=== PATIENT | female | born 1960 | race Caucasian/White ===

== ENCOUNTER 2021-01-19 17:51 | Emergency (ER) | payer MEDICAID ==
[2021-01-19] MEDS ORDERED: HYDROmorphone 1 MG/ML CARPUJECT IVP STA ×2 (18:19→19:41)
--- NOTE | 2021-01-19 18:20 | ED Physician Documentation ---
History of Present Illness - Stated complaint Stated Complaint: GROIN & HIP PX - Chief complaint Chief Complaint: General - History obtained from History obtained from: Patient - Additonal information Additional information: Without specific trauma she has had severe left hip and groin pain for the last 3 days. She points to the inguinal ligament and lateral hip as the site of the pain. Much worse with walking and in fact cannot walk now. She also has severe pain with any rotation of the hip. Has tried Tylenol and naproxen with little relief, and naproxen gave her an upset stomach. She has a history of coronary disease and tobacco abuse. No history of peripheral vascular disease. Review of Systems Constitutional: reports: Reviewed and negative Eyes: reports: Reviewed and negative Ears: reports: Reviewed and negative PD PAST MEDICAL HISTORY - Present Medications Home Medications: Ambulatory Orders Medication Instructions Recorded Confirmed Lidocaine Patch 5% [Lidoderm Patch] 1 patch TOP DAILY PRN #10 patch 01/19/21 Oxycodone HCl/Acetaminophen 1 - 2 each PO Q6H PRN #20 tablet 01/19/21 [Percocet 5-325 mg Tablet] - Allergies Allergies/Adverse Reactions: Allergies Allergy/AdvReac Type Severity Reaction Status Date / Time NSAIDS (Non-Steroidal AdvReac Emesis Verified 01/19/21 18:05 Anti-Inflamma PD ED PE NORMAL - Vitals Vital signs reviewed: Yes - General General: Alert and oriented X 3, Other (She appears uncomfortable, she is holding the hips flexed. Winces with any motion.) - HEENT HEENT: PERRL, EOMI - Neck Neck: Supple, no meningeal sign, No bony TTP - Cardiac Cardiac: RRR, No murmur - Respiratory Respiratory: No respiratory distress, Clear bilaterally - Abdomen Abdomen: Normal bowel sounds, Soft, Non tender - Back Back: No CVA TTP, No spinal TTP - Derm Derm: Normal color, Warm and dry - Extremities Extremities: Other (Tenderness in the left inguinal ligament and lateral hip on the left. Severe pain with external rotation, less so internal rotation. Feet are warm and well perfused.) - Neuro Neuro: Alert and oriented X 3, Normal speech Results - Vitals Vitals: Vital Signs - 24 hr 01/19/21 01/19/21 01/19/21 18:00 18:55 19:04 Temperature 35.9 C L Heart Rate 80 72 75 Respiratory 16 16 16 Rate Blood Pressure 205/91 H 167/87 H O2 Saturation 99 98 97 01/19/21 01/19/21 19:30 20:00 Temperature Heart Rate 70 67 Respiratory 11 L 16 Rate Blood Pressure 165/83 H O2 Saturation 96 94 Oxygen O2 Source Room air - Labs Labs: Laboratory Tests 01/19/21 01/19/21 18:45 18:45 WBC 6.3 RBC 4.21 Hgb 11.5 L Hct 35.7 L MCV 84.8 MCH 27.3 MCHC 32.2 RDW 14.1 Plt Count 275 MPV 9.8 Neut # (Auto) 3.7 Lymph # (Auto) 1.9 [place] # (Auto) 0.6 Eos # (Auto) 0.1 Baso # (Auto) 0.1 Absolute Nucleated RBC 0.00 Nucleated RBC % 0.0 Sodium 141 Potassium 3.7 Chloride 108 Carbon Dioxide 24 Anion Gap 9.0 BUN 13 Creatinine 0.8 Estimated GFR (MDRD) 73 L Glucose 115 H Calcium 9.1 - Rads (name of study) L hip xr Radiology: EMP read contemporaneously (Moderate left hip osteoarthritis) PD MEDICAL DECISION MAKING - ED course ED course: 60-year-old woman presents with severe left hip pain, examination points to the femoral acetabular joint as the source. No evidence of infection. We were able to get a hold of the pain here with medications. Departure - Departure Disposition: 01 Home, Self Care Clinical Impression: Hip pain Condition: Good Record reviewed to determine appropriate education?: Yes Instructions: Hip Osteoarthritis, Hip Osteoarthritis Exercise Follow-Up: Andi Cordero DO [Provider Admit Priv/Credential] - Ricardo Briceño MD [Provider Admit Priv/Credential] - Prescriptions: Lidocaine Patch 5% [Lidoderm Patch] 1 patch TOP DAILY PRN #10 patch PRN Reason: pain Oxycodone HCl/Acetaminophen [Percocet 5-325 mg Tablet] 1 - 2 each PO Q6H PRN #20 tablet PRN Reason: pain Comments: Prescription was sent electronically to [facility] in [place] next to [facility]. For on-call primary care, Dr. Cordero will be on-call the week after next I would call his office for appointment. The local orthopedist is also on this form and would call his office as well. I am prescribing a short course of narcotic pain medication for you. These are potentially dangerous and addictive medications that should be used carefully. These medications may constipate you. Take an agjo-cpf-gqxczln stool softener (docusate) twice daily with plenty of water while taking these medications. If you go 24 hours without a bowel movement, take omwi-yzi-ygsjucj miralax, per package instructions. Do not drink or drive while taking these medications. If you received narcotic or sedating medications while in the emergency department, do not drive for 24 hours. Store this medication in a safe, secure place and out of reach of children. It is a violation of federal law to give or sell this medication to another person or to use in a manner other than prescribed. The ED will not refill narcotic prescriptions, including prescriptions lost or stolen. To dispose of unwanted medications: 1. [facility] at [address] in [place] has a medication drop box. They accept prescription medications (in pill form) Friday through Friday 9:00 a.m. to 5:00 p.m. 2. The [facility] accepts prescription medications (in pill form only) for disposal year round. Call for more information. 3. Contact the [facility] for the next [facility] sponsored prescription drug collection event. , [phone], or [phone]; Note that many narcotic pain relievers also contain Tylenol/acetaminophen. Please ensure that your total dose of acetaminophen from all sources does not exceed 3 g (3000 mg) per day.
--- NOTE | 2021-01-19 18:45 | XRAY Report ---
PROCEDURE: Hip w/Pelvis 2-3V LT INDICATIONS: hip pain TECHNIQUE: AP pelvis with lateral view(s) of the bilateral hip(s). COMPARISON: None. FINDINGS: Bones: No fractures or dislocations. Pelvic ring appears intact. No suspicious bony lesions. Mild right hip and yhow-df-lpioqvaw left hip osteoarthritis. Soft tissues: The visualized bowel gas pattern is normal. No suspicious soft tissue calcifications. IMPRESSION: Osteoarthritis. Reviewed by: Lorri Sanon MD, PhD on 01/19/2021 6:44 PM PDT Approved by: Lorri Sanon MD, PhD on 01/19/2021 6:44 PM PDT Station ID: [id number]
[2021-01-19 18:55] LABS: BASOPHILS # (AUTO) 0.1 10^3/uL (0.0-0.1); BASOPHILS % (AUTO) 1.1 %; EOSINOPHILS # (AUTO) 0.1 10^3/uL (0.0-0.7); EOSINOPHILS % (AUTO) 1.6 %; HCT - HEMATOCRIT 35.7 % (37.0-47.0); HGB - HEMOGLOBIN 11.5 g/dL (12.0-16.0); LYMPHOCYTES # (AUTO) 1.9 10^3/uL (1.5-3.5); LYMPHOCYTES % (AUTO) 29.5 %; MEAN CORPUSCULAR HEMOGLOBIN 27.3 pg (27.0-31.0); MEAN CORPUSCULAR HGB CONC 32.2 g/dL (32.0-36.0); MEAN CORPUSCULAR VOLUME 84.8 fL (81.0-99.0); MEAN PLATELET VOLUME 9.8 fL (7.9-10.8); MONOCYTES # (AUTO) 0.6 10^3/uL (0.0-1.0); MONOCYTES % (AUTO) 8.8 %; NEUTROPHILS # (AUTO) 3.7 10^3/uL (1.5-6.6); NEUTROPHILS % (AUTO) 58.8 %; PLT - PLATELET COUNT 275 10^3/uL (130-450); RED BLOOD COUNT 4.21 10^6/uL (4.20-5.40); RED CELL DISTRIBUTION WIDTH 14.1 % (12.0-15.0); WHITE BLOOD COUNT 6.3 x10^3/uL (4.8-10.8)
[2021-01-19 19:11] LABS: CALCIUM 9.1 mg/dL (8.5-10.3); CREATININE 0.8 mg/dL (0.4-1.0); POTASSIUM 3.7 mmol/L (3.5-5.0)
[2021-01-19] MEDS ORDERED: KETOROLAC 30 MG/ML VIAL IVP STA (19:41)
[2021-01-19 20:10] VITALS: BP 165/83
[2021-01-19] MEDS ORDERED: LIDOCAINE PATCH 5% TOP STA (20:17)
[2021-01-19] MEDS ORDERED: oxyCODONE/ACET 5/325 Prepack 4 PO STA (20:17)
== END 2021-01-19 20:40 | disposition home or self-care (01) ==
LOC: ED 17:51
DX: M25.552 Pain in left hip (principal)
CPT/HCPCS: 36415; 73502; 80048; 85025; 96374; 96375; 96376; 99284; A9270; J1170

== ENCOUNTER 2021-01-30 13:49 | Outpatient (CLI) | payer MEDICAID | END 2021-01-30 13:50 | disposition short-term general hospital (02) | LOC: EMS 13:49 | DX: R07.9 Chest pain, unspecified (principal) | CPT/HCPCS: A0425; A0427; A0999 ==

== ENCOUNTER 2021-03-07 19:10 | Emergency (ER) | payer MEDICAID ==
[2021-03-07] MEDS ORDERED: PANTOPRAZOLE 40 MG VIAL IVP STA (19:37)
[2021-03-07 19:55] LABS: BASOPHILS # (AUTO) 0.1 10^3/uL (0.0-0.1); BASOPHILS % (AUTO) 0.7 %; EOSINOPHILS % (AUTO) 0.6 %; HCT - HEMATOCRIT 35.1 % (37.0-47.0); HGB - HEMOGLOBIN 11.3 g/dL (12.0-16.0); LYMPHOCYTES # (AUTO) 2.1 10^3/uL (1.5-3.5); LYMPHOCYTES % (AUTO) 30.2 %; MEAN CORPUSCULAR HEMOGLOBIN 26.9 pg (27.0-31.0); MEAN CORPUSCULAR HGB CONC 32.2 g/dL (32.0-36.0); MEAN CORPUSCULAR VOLUME 83.6 fL (81.0-99.0); MEAN PLATELET VOLUME 10.6 fL (7.9-10.8); MONOCYTES # (AUTO) 0.7 10^3/uL (0.0-1.0); MONOCYTES % (AUTO) 10.1 %; NEUTROPHILS % (AUTO) 58.1 %; PLT - PLATELET COUNT 294 10^3/uL (130-450); RED CELL DISTRIBUTION WIDTH 14.1 % (12.0-15.0)
[2021-03-07 20:02] LABS: PT - PROTHROMBIN TIME 11.3 secs (9.9-12.6)
[2021-03-07 20:08] LABS: ALBUMIN 4.5 g/dL (3.2-5.5); ALBUMIN/GLOBULIN RATIO 1.7 (1.0-2.2); BILIRUBIN,TOTAL 0.5 mg/dL (0.2-1.0); CALCIUM 9.3 mg/dL (8.5-10.3); CREATININE 0.8 mg/dL (0.4-1.0); POTASSIUM 3.9 mmol/L (3.5-5.0); TOTAL PROTEIN 7.1 g/dL (6.7-8.2)
[2021-03-07] MEDS ORDERED: FAMOTIDINE 20 MG/2 ML VIAL IVP STA (20:38)
[2021-03-07] MEDS ORDERED: MORPHINE 2 MG/ML CARPUJECT IVP STA (20:39)
[2021-03-07] MEDS ORDERED: SODIUM CHLORIDE 0.9% 1,000 ML IV STA (20:39)
[2021-03-07] MEDS ORDERED: HYDROmorphone 1 MG/ML CARPUJECT IVP STA (21:12)
[2021-03-07] MEDS ORDERED: IOVERSOL 320 100 ML VIAL IVP ONE ×2 (21:21→21:49)
--- NOTE | 2021-03-07 22:07 | CT Report ---
PROCEDURE: Abdomen/Pelvis W INDICATIONS: severe abd pain, hx duodenal ulcer, hyst, c sectio CONTRAST: IV CONTRAST: Optiray 320 ml: 100 PO CONTRAST: *NO PO CONTRAST TECHNIQUE: After the administration of intravenous contrast, 5 mm thick sections acquired from the diaphragms to the symphysis. 5 mm thick coronal and sagittal reformats were acquired. For radiation dose reducti on, the following was used: automated exposure control, adjustment of mA and/or kV according to maureen ent size. COMPARISON: None. FINDINGS: Image quality: Excellent. ABDOMEN: Lung bases: Lung bases are clear. Pacemaker leads are partially imaged in the right heart. Solid organs: Liver and spleen are normal in size and enhancement. Gallbladder is unremarkable. Bi liary system is non dilated. Pancreas enhances normally. No adrenal nodules. Kidneys demonstrate n ormal size and enhancement, without hydronephrosis. There is mild chronic renal cortical scarring at the superior pole of the left kidney. Peritoneum and bowel: No duodenal wall thickening or perforation is seen. Multiple diverticula are se en in the colon without signs of acute diverticulitis. Normal appendix. No signs of bowel obstruction . No free fluid or air. Nodes and vessels: No retroperitoneal or mesenteric adenopathy by size criteria. Aorta and inferior vena cava are normal in size. Moderate aortic atherosclerotic calcifications are noted. Miscellaneous: No ventral hernias. PELVIS: Genitourinary: Bladder wall thickness is normal. Status post hysterectomy. Miscellaneous: No inguinal hernias or adenopathy. Bones: No suspicious bony lesions. No vertebral body compression fractures. Post surgical changes a re seen at the L5-S1 level. Degenerative changes are noted in the hips and spine. IMPRESSION: 1.No acute abnormality is seen in the abdomen or pelvis. 2.Colonic diverticulosis without signs of acute diverticulitis. Reviewed by: London Galo MD on 03/07/2021 10:06 PM PDT Approved by: London Galo MD on 03/07/2021 10:06 PM PDT Station ID: [id number]
--- NOTE | 2021-03-07 22:44 | ED Physician Documentation ---
History of Present Illness - Stated complaint Stated Complaint: VOMITING BLOOD, DARK STOOL, BLOATING - Chief complaint Chief Complaint: Abd Pain - History obtained from History obtained from: Patient - Additonal information Additional information: 60yF with pmh duodenal ulcer, cad s/p cabg, psh partial hysterectomy, c section, p/w epigastric and LUQ abdominal pain intermittent over the past 2 days, a/w n/v X 2, one of which was "gummy" with dark red blood. also with black stools. black BM this am and last night. last endoscopy / colonoscopy >[address] 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 Cardiovascular: Coronary stent, Cardiac catheterization - Present Medications Home Medications: Ambulatory Orders Medication Instructions Recorded Confirmed Lidocaine Patch 5% [Lidoderm Patch] 1 patch TOP DAILY PRN #10 patch 01/19/21 Oxycodone HCl/Acetaminophen 1 - 2 each PO Q6H PRN #20 tablet 01/19/21 [Percocet 5-325 mg Tablet] Ondansetron Odt [Zofran Odt] 4 mg TL Q6H PRN #10 tablet 03/07/21 Oxycodone HCl/Acetaminophen 1 each PO Q4H PRN #10 tablet 03/07/21 [Percocet 10-325 mg Tablet] - Allergies Allergies/Adverse Reactions: Allergies Allergy/AdvReac Type Severity Reaction Status Date / Time NSAIDS (Non-Steroidal AdvReac Emesis Verified 03/07/21 19:36 Anti-Inflamma - Social History Does the pt smoke?: Yes Smoking Status: Current every day smoker Does the pt drink ETOH?: No Does the pt have substance abuse?: No PD ED PE NORMAL - Vitals Vital signs reviewed: Yes - General General: Alert and oriented X 3, Other (tearful, moderate distress. appears older than stated age) - HEENT HEENT: Atraumatic, PERRL, EOMI - Neck Neck: Supple, no meningeal sign - Cardiac Cardiac: RRR - Respiratory Respiratory: No respiratory distress, Clear bilaterally - Abdomen Abdomen: Other (discomfort to epigastric and LUQ palpation) - Back Back: No CVA TTP - Derm Derm: Normal color - Extremities Extremities: No deformity - Neuro Neuro: Alert and oriented X 3 - Psych Psych: Other (anxious affect. tearful) Results - Vitals Vitals: Vital Signs - 24 hr 03/07/21 03/07/21 03/07/21 19:20 20:00 20:30 Temperature 36.4 C L 36.4 C L Heart Rate 79 67 71 Respiratory 20 23 20 Rate Blood Pressure 209/97 H 205/93 H 170/100 H O2 Saturation 97 100 96 03/07/21 03/07/21 03/07/21 21:00 21:30 22:00 Temperature Heart Rate 70 72 70 Respiratory 18 14 16 Rate Blood Pressure 196/103 H 189/94 H 179/89 H O2 Saturation 98 96 99 03/07/21 03/07/21 22:30 23:00 Temperature Heart Rate 67 88 Respiratory 11 L 16 Rate Blood Pressure 182/91 H 136/69 H O2 Saturation 95 99 Oxygen O2 Source Room air - EKG (time done) 2147 Rate: Rate (enter#) (72) Rhythm: NSR [place]: Normal Intervals: Normal CA, QRS normal Ischemia: Other (no STEMI, no acute ischemic changes) - Labs Labs: Laboratory Tests 03/07/21 03/07/21 03/07/21 19:44 19:50 19:50 WBC 7.0 RBC 4.20 Hgb 11.3 L Hct 35.1 L MCV 83.6 MCH 26.9 L MCHC 32.2 RDW 14.1 Plt Count 294 MPV 10.6 Neut # (Auto) 4.0 Lymph # (Auto) 2.1 [place] # (Auto) 0.7 Eos # (Auto) 0.0 Baso # (Auto) 0.1 Absolute Nucleated RBC 0.00 Nucleated RBC % 0.0 PT 11.3 INR 1.0 APTT 30.0 Sodium Potassium Chloride Carbon Dioxide Anion Gap BUN Creatinine Estimated GFR (MDRD) Glucose Calcium Total Bilirubin AST ALT Alkaline Phosphatase Total Protein Albumin Globulin Albumin/Globulin Ratio Lipase Blood Type Blood Type Recheck A NEGATIVE Antibody Screen 03/07/21 03/07/21 19:50 19:52 WBC RBC Hgb Hct MCV MCH MCHC RDW Plt Count MPV Neut # (Auto) Lymph # (Auto) [place] # (Auto) Eos # (Auto) Baso # (Auto) Absolute Nucleated RBC Nucleated RBC % PT INR APTT Sodium 137 Potassium 3.9 Chloride 102 Carbon Dioxide 26 Anion Gap 9.0 BUN 18 Creatinine 0.8 Estimated GFR (MDRD) 73 L Glucose 96 Calcium 9.3 Total Bilirubin 0.5 AST 16 ALT 15 Alkaline Phosphatase 74 Total Protein 7.1 Albumin 4.5 Globulin 2.6 Albumin/Globulin Ratio 1.7 Lipase 35 Blood Type A NEGATIVE Blood Type Recheck Antibody Screen NEGATIVE PD MEDICAL DECISION MAKING - ED course ED course: ct noncontributory. hb stable. patient with significant improvement with symptomatic care. strict return precautions given. she will f/u urgently with her pcp Dr. Heath for referral for endoscopy. Departure - Departure Disposition: Home, Self Care Clinical Impression: Nausea, Abdominal pain Condition: Good Instructions: Abdominal Pain Prescriptions: Oxycodone HCl/Acetaminophen [Percocet 10-325 mg Tablet] 1 each PO Q4H PRN #10 tablet PRN Reason: Pain Ondansetron Odt [Zofran Odt] 4 mg TL Q6H PRN #10 tablet PRN Reason: Nausea / Vomiting Comments: You were seen in the emergency department for vomiting, abdominal pain, and dark stools. Your hemoglobin, measure of your blood level, was the same as it has been in the past. It does not appear that you are bleeding excessively at this time. Your CT scan did not show any emergent findings, but since you saw blood in your vomit and you are having dark stools you will need to follow up with your primary doctor as soon as possible for referral for endoscopy. It is very important that you return to the emergency room if you have multiple large bloody bowel movements or large-volume blood in your vomit. Please also return if You have trouble passing gas, are unable to have a bowel movement, or have any other new or worsening symptoms or other concerns. Discharge Date/Time: 03/07/21 23:43
[2021-03-07 23:03] VITALS: BP 136/69
== END 2021-03-07 23:43 | disposition home or self-care (01) ==
LOC: ED 19:10
DX: R10.12 Left upper quadrant pain (principal); R10.13 Epigastric pain; R11.2 Nausea with vomiting, unspecified; K57.30 Diverticulosis of large intestine without perforation or abscess without bleeding; Z87.11 Personal history of peptic ulcer disease; I25.10 Atherosclerotic heart disease of native coronary artery without angina pectoris; Z95.1 Presence of aortocoronary bypass graft; F17.200 Nicotine dependence, unspecified, uncomplicated
CPT/HCPCS: 36415; 74177; 80053; 83690; 85025; 85610; 85730; 86850; 86900; 86901; 93005; 96374; 96375; 99283; 99285; J1170; Q9967

== ENCOUNTER 2021-03-14 13:40 | Outpatient (CLI) | payer MEDICAID ==
--- NOTE | 2021-03-15 09:56 | Mammography Report ---
BILATERAL DIGITAL SCREENING MAMMOGRAM 3D/2D: 03/14/2021 CLINICAL: Routine screening. Comparison is made to exams dated: 12/01/2014 mammogram and 02/22/2014 mammogram - [facility]. There are scattered fibroglandular elements in both breasts. There is a new 0.3 cm x 0.5 cm oval asymmetry with a circumscribed margin in the left breast middle d epth central to the nipple seen on the craniocaudal view only 6 cm from the nipple. No other significant masses, calcifications, or other findings are seen in either breast. IMPRESSION: INCOMPLETE: NEEDS ADDITIONAL IMAGING EVALUATION The new 0.3 cm x 0.5 cm oval asymmetry in the left breast is consistent with a cyst and is indetermin ate. A diagnostic mammogram and ultrasound is recommended. This exam was interpreted at Station ID: [id number]. NOTE: For mammograms, a report in lay terms will be sent to the patient. Approximately 15% of breast malignancies will not be visualized mammographically. In the management of a palpable breast mass, a negative mammogram must not discourage biopsy of a clinically suspicious lesion. Electronically Signed By: Bossman Vogel acr/:03/14/2021 16:32:10 ACR BI-RADS Category 0: Incomplete 3340F PARENCHYMAL PATTERN: (A) - The breast(s) demonstrate(s) scattered fibroglandular densities. BI-RADS CATEGORY: (0) - 0 Mammo and [place] [id number] Immediate follow-up LATERALITY: (L)
== END 2021-03-14 13:41 | disposition home or self-care (01) ==
LOC: DI.N 13:40
PROVIDERS: ATTEND Physician Assistant
DX: Z12.31 Encounter for screening mammogram for malignant neoplasm of breast (principal); N64.89 Other specified disorders of breast

== ENCOUNTER 2021-03-14 13:42 | Outpatient (CLI) | payer MEDICAID | END 2021-03-14 13:43 | disposition home or self-care (01) | LOC: LAB.N 13:42 | PROVIDERS: ATTEND Physician Assistant | DX: R10.9 Unspecified abdominal pain (principal); Z87.19 Personal history of other diseases of the digestive system ==

== ENCOUNTER 2021-04-26 12:29 | Outpatient (CLI) | payer MEDICAID ==
--- NOTE | 2021-04-27 10:17 | Mammography Report ---
UNILATERAL LEFT DIGITAL DIAGNOSTIC MAMMOGRAM 3D/2D: 04/26/2021 CLINICAL: Patient returns today to evaluate an asymmetry in the left breast. Comparison is made to exams dated: 12/01/2014 mammogram, 02/22/2014 mammogram - [facility], and 03/14/2021 mammogram - [facility]. There are scattered fibroglandular el ements in left breast. There is an oval equal density asymmetry with an indistinct and circumscribed margin in the left [address] middle depth medial region seen on the craniocaudal view only. No other significant masses or calcifications are seen in the breast. IMPRESSION: INCOMPLETE: NEEDS ADDITIONAL IMAGING EVALUATION The oval equal density asymmetry in the left breast is indeterminate. An ultrasound is recommended. Ultrasound will be performed immediately following the current exam. This exam was interpreted at Station ID: [id number]. NOTE: For mammograms, a report in lay terms will be sent to the patient. Approximately 15% of breast malignancies will not be visualized mammographically. In the management of a palpable breast mass, a negative mammogram must not discourage biopsy of a clinically suspicious lesion. Electronically Signed By: Noel Larios M.D. ddp/:04/26/2021 13:25:42 ACR BI-RADS Category 0: Incomplete 3340F PARENCHYMAL PATTERN: (A) - The breast(s) demonstrate(s) scattered fibroglandular densities. BI-RADS CATEGORY: (0) - 0 Ultrasound [id number] Immediate follow-up LATERALITY: (B)
--- NOTE | 2021-04-27 10:17 | Ultrasound Report ---
LIMITED ULTRASOUND OF LEFT BREAST: 04/26/2021 CLINICAL: Patient returns today to evaluate a focal asymmetry in the left breast. Comparison is made to exams dated: 04/26/2021 mammogram, 03/14/2021 mammogram - [facility], 12/01/2014 mammogram, and 02/22/2014 mammogram - [facility]. Ultrasound of the left breast 7-11 o'clock, and retroareolar regions was performed on the area of in terest. Khan scale images of the real-time examination were reviewed. No discrete cystic or solid mass lesion identified in the area of mammographic abnormality. IMPRESSION: PROBABLY BENIGN There are no abnormalities seen in the left breast to correspond with the mammography finding central to the nipple and slightly medial in the left breast. A follow-up mammogram and a possible ultrasound in 6 months are recommended to demonstrate stability. This exam was interpreted at Station ID: [id number]. Electronically Signed By: Noel Larios M.D. ddp/:04/26/2021 13:55:05 Ultrasound BI-RADS: 3 Probably benign BI-RADS CATEGORY: (3) - 3 Mammo and [place] [id number] 6 month follow-up LATERALITY: (B)
== END 2021-04-26 12:30 | disposition home or self-care (01) ==
LOC: DI 12:29
PROVIDERS: ATTEND Physician Assistant
DX: R92.8 Other abnormal and inconclusive findings on diagnostic imaging of breast (principal)

== ENCOUNTER 2021-07-04 12:14 | Outpatient (CLI) | payer MEDICAID | END 2021-07-04 12:15 | disposition critical access hospital (66) | LOC: EMS 12:14 | DX: R07.9 Chest pain, unspecified (principal); I25.2 Old myocardial infarction; Z95.0 Presence of cardiac pacemaker | CPT/HCPCS: A0425; A0427; A0999 ==

== ENCOUNTER 2021-07-04 12:36 | Emergency (ER) | payer MEDICAID ==
[2021-07-04] MEDS ORDERED: LABETALOL 20 MG/4 ML SYRINGE IVP STA (12:52)
--- NOTE | 2021-07-04 12:56 | ED Physician Documentation ---
History of Present Illness - Stated complaint Stated Complaint: CHEST PX - Chief complaint Chief Complaint: Cardiac - Additonal information Additional information: 60-year-old female presents emergency department for evaluation of sudden onset substernal chest pain and pressure with radiation to her neck and jaw. She reports a significant cardiac history of at least 8 myocardial infarctions since 2009. She has a CABG x2 and stent x7 as a pacermaker. These cardiovascular procedures were completed in [facility]. She is however evaluated by [facility] cardiology. Patient reports that the chest pain occurred when she was putting water in her refrigerator. This feels similar to previous MIs in the past though no radiation to the arm. EMS gave the patient nitroglycerin x2 but had to stop given soft BP enroute. They also gave her 325 of aspirin. Here on presentation to the ER the patient appears very uncomfortable and is clutching at her chest. She is noted to be normotensive but tachycardic with a heart rate of 116. Given the significant cardiac history she is given additional doses of nitroglycerin as well as a small dose of labetalol to slow her heart rate. pt does have a hx of duodenal ulcer; denies melena or hematochezia. Reports this pain is very different and she has no abdominal pain Patient was an active daily tobacco user until May 18, 2021 meds: asa 81 mg prazosin 5mg daily pantropazole 40 mg qd losartan/HCT 100/12.5 proxetine 40 mg Review of Systems Constitutional: reports: Reviewed and negative Nose: reports: Reviewed and negative Throat: reports: Reviewed and negative Cardiac: reports: Chest pain / pressure, Palpitations. denies: Pedal edema, Ca lf pain Respiratory: reports: Reviewed and negative GI: reports: Nausea. 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 Cardiovascular: Coronary stent, Cardiac catheterization - Present Medications Home Medications: Ambulatory Orders Medication Instructions Recorded Confirmed Oxycodone HCl/Acetaminophen 1 each PO Q4H PRN #10 tablet 03/07/21 07/04/21 [Percocet 10-325 mg Tablet] HYDROcod/ACETAM 5/325 [[place] 5/325] 1 tab PO Q4HR PRN 07/04/21 07/04/21 Losartan/Hydrochlorothiazide 1 tab PO HS 07/04/21 07/04/21 [Losartan-Hctz 100-12.5 mg Tab] Prazosin HCl [Minipress] 5 mg PO HS 07/04/21 07/04/21 hydrOXYzine HCL [Hydroxyzine HCl] 25 mg PO HS 07/04/21 07/04/21 lamoTRIgine [LaMICtal] 100 mg PO HS 07/04/21 07/04/21 traZODone [Desyrel] 50 mg PO HS 07/04/21 07/04/21 - Allergies Allergies/Adverse Reactions: Allergies Allergy/AdvReac Type Severity Reaction Status Date / Time NSAIDS (Non-Steroidal AdvReac Emesis Verified 07/04/21 12:47 Anti-Inflamma - Social History Does the pt smoke?: Yes Smoking Status: Current every day smoker Does the pt drink ETOH?: No Does the pt have substance abuse?: No PD ED PE EXPANDED - General General: Alert, In Pain, In distress - Cardiac Cardiac: Tachy, Regular Rhythm, Radial strong equal, Pedal strong equal, Cap refill < 2 sec. No: Murmur Present - Respiratory Respiratory: Clear to ausultation ashish. No: Distress, Labored - Abdomen Abdomen: Normal Bowel sounds. No: Tender to palpation - Derm Derm: Normal color, Warm and dry. No: Rash - Extremities Extremities: Normal. No: Deformity, Tenderness - Neuro Neuro: Alert and Oriented X 3, CNII-XII intact - GCS Eye Opening: Spontaneous Motor: Obeys Commands Verbal: Oriented Total: 15 Results - Vitals Vitals: Vital Signs - 24 hr 07/04/21 07/04/21 07/04/21 12:44 12:57 13:21 Temperature 36.2 C L Heart Rate 116 H 102 H 82 Respiratory 25 H 17 22 Rate Blood Pressure 107/84 H 107/84 H 103/70 O2 Saturation 99 98 94 07/04/21 07/04/21 07/04/21 13:22 13:23 13:31 Temperature Heart Rate 81 83 78 Respiratory 22 20 26 H Rate Blood Pressure 103/81 H 140/73 H 106/76 O2 Saturation 98 98 99 07/04/21 07/04/21 07/04/21 14:12 15:30 16:10 Temperature Heart Rate 60 60 60 Respiratory 15 18 19 Rate Blood Pressure 113/69 130/77 124/80 O2 Saturation 100 100 96 07/04/21 07/04/21 07/04/21 17:00 17:30 18:00 Temperature Heart Rate 70 73 71 Respiratory 19 19 19 Rate Blood Pressure 133/87 H 145/97 H 145/97 H O2 Saturation 99 100 100 07/04/21 07/04/21 07/04/21 19:30 20:14 21:39 Temperature Heart Rate 71 63 73 Respiratory 20 18 18 Rate Blood Pressure 119/68 131/77 H 125/79 O2 Saturation 100 93 100 07/04/21 07/04/21 07/04/21 21:41 21:46 21:51 Temperature Heart Rate 68 69 73 Respiratory 19 19 22 Rate Blood Pressure 135/80 H 135/71 H 135/71 H O2 Saturation 100 99 100 07/04/21 07/04/21 21:56 22:00 Temperature Heart Rate 72 81 Respiratory 18 19 Rate Blood Pressure 125/79 120/80 O2 Saturation 100 98 Oxygen O2 Source Room air Oxygen Flow Rate 2 - EKG (time done) 1236 Rate: Rate (enter#) (123) Rhythm: Sinus tachycardia, LAE Arabi: Normal Intervals: Normal AR. No: Prolonged QT QRS: LVH Ischemia: Non specific changes Compare to prior EKG: Changed from prior EKG (previous t wave inversion lateral leads; now upright) Computer interpretation: Agree with computer 1607 Rate: Rate (enter#) (60) Rhythm: Paced (atrially) Intervals: Normal AR. No: Prolonged QT QRS: Normal Ischemia: T wave inversion (anterior lateral; unchaged from previous to last), Non specific changes (Aterior leads) - Labs Labs: Laboratory Tests 07/04/21 07/04/21 07/04/21 12:52 12:52 12:52 WBC 9.6 RBC 4.58 Hgb 12.6 Hct 37.8 MCV 82.5 MCH 27.5 MCHC 33.3 RDW 14.2 Plt Count 372 MPV 9.3 Neut # (Auto) 6.7 H Lymph # (Auto) 1.9 [place] # (Auto) 0.9 Eos # (Auto) 0.0 Baso # (Auto) 0.1 Absolute Nucleated RBC 0.00 Nucleated RBC % 0.0 PT 11.2 INR 1.0 Sodium 132 L Potassium 3.7 Chloride 97 L Carbon Dioxide 23 Anion Gap 12.0 BUN 14 Creatinine 1.1 H Estimated GFR (MDRD) 51 L Glucose 123 H Calcium 9.0 Total Bilirubin 0.9 AST 21 ALT 22 Alkaline Phosphatase 76 Troponin I High Sens Total Protein 7.5 Albumin 4.6 Globulin 2.9 Albumin/Globulin Ratio 1.6 Lipase 37 07/04/21 07/04/21 07/04/21 12:52 15:13 16:39 WBC RBC Hgb Hct MCV MCH MCHC RDW Plt Count MPV Neut # (Auto) Lymph # (Auto) [place] # (Auto) Eos # (Auto) Baso # (Auto) Absolute Nucleated RBC Nucleated RBC % PT INR Sodium Potassium Chloride Carbon Dioxide Anion Gap BUN Creatinine Estimated GFR (MDRD) Glucose Calcium Total Bilirubin AST ALT Alkaline Phosphatase Troponin I High Sens 9.1 9.4 9.9 Total Protein Albumin Globulin Albumin/Globulin Ratio Lipase - Rads (name of study) CXR Radiology: EMP read contemporaneously (Pacemaker noted. Otherwise no acute cardiopulmonary process.) CT pulmonary angio Radiology: Final report received (No evidence of pulmonary emboli. No thoracic aortic aneurysm. Cardiomegaly, no pleural effusion. Left chest wall pacemaker in place. No mediastinal or hilar lymphadenopathy. 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 She quit smoking about 3 months ago. EMS gave 325 aspirin and nitro X2 withotu relief of CP. She did develop hyotension briefly enroute - initial EKG ST. Given cardiac hx she was given labetalol to reduce HR. Pain was not relieved with nitro X3 or morphine and fentanyl. Chest pain was not reproducible. - initial EKG, non ischemic, frist trop negative. second trop at > 2 hours also negative - CT PE study negative, withotu other acute findings 1500: I did speak with Dr. Rodríguez cardiology specifications writer at [facility]. He does feel that the patient should be admitted to the hospital to achieve control of her chest pain as well as a cardiac stress test. He does not believe the patient would need to go to [facility] if her troponins are negative x2. 1545: I spoke with our hospitalist Dr. Damian. He does not feel that the patient is appropriate for admission here. He does not feel that with her cardiac history placing her on a treadmill and/or doing a pharmacologic stress test is safe, Especially in the presence of active chest pain. There is a paucity of beds regionally secondary to the pandemic however we will attempt to transfer to a facility that has cardiology services available. Will continue to treat her chest pain. 1800: pt is crying, tearful, upset. Feels like she is havign a panic attack. Will give 1 mg of ativan IV 1945: Pt is free of chest pain at this time. NO longer anxious and crying. However if she should develop CP again, she will be placed on a nitroglycerin grr. Pt has received 50 mg fentanyl IV X3 here in the ED> Trops negative X3; we have called [facility] to help find a bed for transfer. We do no have the ability to do a stress test on pt tomorrow [facility] 2145: Patient has developed the chest pain again 8 out of 10 sharp and radiating to her back. Nitroglycerin infusion will be initiated. We are still attempting to find a bed with the cardiac services available for further evaluation and/or stress test. 2200: I have spoken with [facility] transfer center and notified that the patient is now on a nitroglycerin gtt. Resp PCR is pending. Pt remains clinically stable but will be signed out to my nighttime colleague Dr. Villela to f/u on transfer bed availability 2300: Patient remains on the nitroglycerin infusion. She is continuing to have chest pain. Will order an additional 25 mics of fentanyl. Patient will be signed out to my nighttime colleague pending appropriate transfer to [facility] with cardiology services. Departure - Departure Disposition: 02 Transfer Acute Care Hosp Clinical Impression: Chest pain Qualifiers: Chest pain type: unspecified Qualified Code(s): R07.9 - Chest pain, unspecified CAD (coronary artery disease) Qualifiers: Coronary Disease-Associated Artery/Lesion type: unspecified vessel or lesion type [place] vs. transplanted heart: [place] heart Associated angina: without angina Qualified Code(s): I25.10 - Atherosclerotic heart disease of [place] coronary artery without angina pectoris
[2021-07-04] MEDS: NITROGLYCERIN SL 0.4 MG TABLET SL STA ×3 (12:57→13:31)
[2021-07-04 13:00] LABS: BASOPHILS # (AUTO) 0.1 10^3/uL (0.0-0.1); BASOPHILS % (AUTO) 0.7 %; EOSINOPHILS % (AUTO) 0.4 %; HCT - HEMATOCRIT 37.8 % (37.0-47.0); HGB - HEMOGLOBIN 12.6 g/dL (12.0-16.0); LYMPHOCYTES # (AUTO) 1.9 10^3/uL (1.5-3.5); LYMPHOCYTES % (AUTO) 19.7 %; MEAN CORPUSCULAR HEMOGLOBIN 27.5 pg (27.0-31.0); MEAN CORPUSCULAR HGB CONC 33.3 g/dL (32.0-36.0); MEAN CORPUSCULAR VOLUME 82.5 fL (81.0-99.0); MEAN PLATELET VOLUME 9.3 fL (7.9-10.8); MONOCYTES # (AUTO) 0.9 10^3/uL (0.0-1.0); MONOCYTES % (AUTO) 9.2 %; NEUTROPHILS # (AUTO) 6.7 10^3/uL (1.5-6.6); NEUTROPHILS % (AUTO) 69.7 %; PLT - PLATELET COUNT 372 10^3/uL (130-450); RED BLOOD COUNT 4.58 10^6/uL (4.20-5.40); RED CELL DISTRIBUTION WIDTH 14.2 % (12.0-15.0); WHITE BLOOD COUNT 9.6 x10^3/uL (4.8-10.8)
[2021-07-04] MEDS ORDERED: MORPHINE 2 MG/ML CARPUJECT IVP STA (13:00)
[2021-07-04] MEDS ORDERED: SODIUM CHLORIDE 0.9% 1,000 ML IV STA (13:02)
[2021-07-04 13:16] LABS: PT - PROTHROMBIN TIME 11.2 secs (9.9-12.6)
--- NOTE | 2021-07-04 13:17 | XRAY Report ---
PROCEDURE: Chest 1 View X-Ray INDICATIONS: Chest Pain TECHNIQUE: One view of the chest was acquired. COMPARISON: None. FINDINGS: Surgical changes and devices: left chest wall pacemaker leads are in the region of right atrium and r ight ventricle.. Lungs and pleura: No pleural effusions or pneumothorax. Lungs are clear. Mediastinum: Mediastinal contours appear normal. Heart size is normal. Bones and chest wall: No suspicious bony lesions. Overlying soft tissues appear unremarkable. IMPRESSION: No acute cardiopulmonary pathology. Reviewed by: Chano Figueroa MD on 07/04/2021 1:15 PM PST Approved by: Chano Figueroa MD on 07/04/2021 1:15 PM PST Station ID: [id number]
[2021-07-04 13:25] LABS: ALBUMIN 4.6 g/dL (3.2-5.5); ALBUMIN/GLOBULIN RATIO 1.6 (1.0-2.2); BILIRUBIN,TOTAL 0.9 mg/dL (0.2-1.0); CREATININE 1.1 mg/dL (0.4-1.0); TOTAL PROTEIN 7.5 g/dL (6.7-8.2)
[2021-07-04 13:27] LABS: POTASSIUM 3.7 mmol/L (3.5-5.0)
[2021-07-04] MEDS ORDERED: IOVERSOL 320 100 ML VIAL IVP ONE ×2 (13:39→14:57)
[2021-07-04] MEDS ORDERED: fentaNYL 100 MCG/2 ML VIAL IVP STA ×4 (13:40→23:13)
[2021-07-04] MEDS ORDERED: MAGNESIUM HYDROXIDE 2,400 MG/30 ML UDC PO STA (13:41)
--- NOTE | 2021-07-04 14:21 | CT Report ---
PROCEDURE: ANGIO CHEST W/WO INDICATIONS: chest pain; r/o PE CONTRAST: IV CONTRAST: Optiray 320 ml: 80 PO CONTRAST: *NO PO CONTRAST TECHNIQUE: After the administration of intravenous contrast, 2 mm axial images were acquired from the pulmonary apices to the posterior costophrenic angles during the arterial phase. In addition, 1 mm lung kernel and 5 mm soft tissue kernel reconstructions were performed. 3-dimensional coronal oblique maximum int ensity projection (MIP) reformats, 8 mm axial MIP, and 5 mm coronal and sagittal MPR reformats were t hen performed through the thorax. For radiation dose reduction, the following was used: automated exp osure control, adjustment of mA and/or kV according to patient size. COMPARISON: Chest radiograph from the same day. FINDINGS: Image quality: Excellent. Pulmonary arteries: Pulmonary arteries are normal in size, and demonstrate no intraluminal filling d efects to suggest central pulmonary embolism. Lungs and pleura: Scattered atelectasis in periphery of bilateral mid to lower lung [place] are seen. No focal airspace opacity. No pleural effusions or pneumothorax. Central and peripheral airways are patent. Mediastinum: Heart size is enlarged, without pericardial effusion. Left chest wall pacemaker leads a re in the region of right atrium and right ventricle. Moderate atherosclerotic disease including vess els and thoracic aorta is seen. No mediastinal or hilar adenopathy. Thoracic aorta is normal in [place] ly and enhancement. Esophagus is normal in caliber, without hiatal hernia. Bones and chest wall: No suspicious bony lesions. Post fusion changes are seen in visualized lower c ervical spine with narrowing hardening artifact. No acute vertebral body compression fracture. Visual ized bilateral ribs are grossly intact. No axillary or supraclavicular adenopathy. The thyroid is no rmal in size and there are no incidental findings. Abdomen: Visualized upper abdominal solid organs appear normal in the early arterial phase of enhanc ement. IMPRESSION: 1. No evidence of pulmonary emboli. No thoracic aortic aneurysm. 2. Cardiomegaly, no pericardial effusion. Left chest wall pacemaker in place. No mediastinal or hilar lymphadenopathy. Moderate atherosclerotic disease. 3. Mild scattered atelectasis in periphery of bilateral lung robledo. Bilateral lungs are otherwise cl ear. Airway is patent. CLINICAL RECOMMENDATION STATEMENTS: In patients <35 years with an ITN detected on CT, MRI, or extrathyroidal ultrasound, the Committee re commends further evaluation with dedicated thyroid ultrasound if the nodule is "e1 cm and has no susp icious imaging features, and if the patient has normal life expectancy. In patients "e35 years with an ITN detected on CT, MRI, or extrathyroidal ultrasound, the Committee r ecommends further evaluation with dedicated thyroid ultrasound if the nodule is "e1.5 cm and has no s uspicious imaging features, and if the patient has normal life expectancy. (ACR, 2014) Reviewed by: Chano Figueroa MD on 07/04/2021 2:20 PM PST Approved by: Chano Figueroa MD on 07/04/2021 2:20 PM PST Station ID: [id number]
[2021-07-04] MEDS ORDERED: LORazepam 2 MG/ML VIAL IVP STA (17:56)
[2021-07-04] MEDS ORDERED: NITROGLYCERIN 50 MG/250 ML 50 MG/250 ML BOTTLE IV SCH (20:00)
[2021-07-04] MEDS ORDERED: traZODone 50 MG TABLET PO STA (22:53)
[2021-07-04] MEDS ORDERED: HYDROcod/ACETAM 5/325 MG TABLET PO STA (22:55)
[2021-07-04] MEDS ORDERED: lamoTRIgine 25 MG TABLET PO SCH (23:00)
[2021-07-05 00:04] LABS: B. PARAPERTUSSIS- RESP PCR PAN NOT DETECTED; B. PERTUSSIS- RESP PCR PANEL NOT DETECTED; C. PNEUMONIAE- RESP PCR PANEL NOT DETECTED; CORONAVIRUS 229E-RESP PCR NOT DETECTED; CORONAVIRUS HKU1-RESP PCR NOT DETECTED; CORONAVIRUS NL63-RESP PCR NOT DETECTED; CORONAVIRUS OC43-RESP PCR NOT DETECTED; HUMAN METAPNEUMOVIRUS NOT DETECTED; INFLUENZA A- RESP PCR PANEL NOT DETECTED; INFLUENZA B - RESP PCR PANEL NOT DETECTED; M. PNEUMONIAE- RESP PCR PANEL NOT DETECTED; PARAINFLUENZA VIRUS 1 NOT DETECTED; PARAINFLUENZA VIRUS 2 NOT DETECTED; PARAINFLUENZA VIRUS 3 NOT DETECTED; PARAINFLUENZA VIRUS 4 NOT DETECTED; RHINOVIRUS/ENTEROVIRUS NOT DETECTED; RSV- RESP PCR PANEL NOT DETECTED; SARS-CoV-2 -RESP PCR PANEL NOT DETECTED
--- NOTE | 2021-07-05 00:20 | ED Physician Documentation ---
ED Addendum - Addendum Addendum: 07/05/21 00:20 d/w Dr. Li, senior research project manager in [facility] who states that it sounds reasonable for patient to be transferred there for cardiac evaluation if beds are available. He will provide info to our [facility] to determine bed availability. 07/05/21 00:23 07/05/21 01:02 D/w Dr. Olivera, hospitalist at [facility] who accepts in transfer. 07/05/21 01:09 Disposition transfer Condition stable Impression 1. chest pain 2. history of CAD
[2021-07-05] MEDS ORDERED: LORazepam 1 MG TABLET PO STA (00:28)
[2021-07-05] MEDS ORDERED: fentaNYL 100 MCG/2 ML VIAL IVP STA (02:43)
[2021-07-05] MEDS ORDERED: LORazepam 2 MG/ML VIAL IVP STA (03:11)
[2021-07-05 03:20] VITALS: BP 139/73
[2021-07-05] MEDS ORDERED: PRAZOSIN 1 MG CAPSULE PO SCH (21:00)
== END 2021-07-05 03:30 | disposition short-term general hospital (02) ==
LOC: EDUNIT# → ED 12:36
DX: R07.9 Chest pain, unspecified (principal); I25.10 Atherosclerotic heart disease of native coronary artery without angina pectoris; F41.9 Anxiety disorder, unspecified; Z87.891 Personal history of nicotine dependence; Z20.822 Contact with and (suspected) exposure to COVID-19
CPT/HCPCS: 0202U; 36415; 71045; 71275; 80053; 83690; 84484; 85025; 85610; 93005; 99284; 99285; A9270; J2060; J8499; Q9967

== ENCOUNTER 2021-07-26 17:47 | Emergency (ER) | payer MEDICAID ==
[2021-07-26] MEDS ORDERED: oxyCODONE 5 MG TABLET PO STA (19:15)
--- NOTE | 2021-07-26 19:25 | XRAY Report ---
PROCEDURE: Ribs w/PA Chest LT INDICATIONS: fall, rib pain TECHNIQUE: 2 views of the left ribs were acquired, along with a single view chest. COMPARISON: None FINDINGS: Surgical changes and devices: Left chest wall pacer. Bones and chest wall: No fractures or dislocations. No suspicious bony lesions. Overlying soft tis sues appear unremarkable. Lungs and pleura: No pleural effusions or pneumothorax. Lungs appear clear. Mediastinum: Mediastinal contours appear normal. Heart size is normal. IMPRESSION: Normal AP view of the chest and left ribs. Reviewed by: Bossman Vogel on 07/26/2021 7:24 PM PST Approved by: Bossman Vogel on 07/26/2021 7:24 PM PST Station ID: [id number]
--- NOTE | 2021-07-26 19:46 | ED Physician Documentation ---
History of Present Illness - Stated complaint Stated Complaint: LEFT SIDE PAIN - Chief complaint Chief Complaint: Trauma Ch/Bk - History obtained from History obtained from: Patient - History of Present Illness Timing: How many days ago (4) Pain level max: 8 Pain level now: 7 - Additonal information Additional information: Patient is a 60-year-old female who 4 days ago slipped and fell, landed on the bathtub injuring her left ribs. Has had continued left rib pain since that time. PCP sent her here for evaluation. No head, neck, back pain. No loss of bowel or bladder control. No loss of consciousness. No vomiting. Worse with movement and palpation. Has not taken anything for pain at home Review of Systems Constitutional: denies: Fever, Chills Throat: denies: Sore throat Cardiac: denies: Chest pain / pressure Respiratory: denies: Cough, Wheezing GI: denies: Abdominal Pain, Nausea, Vomiting, Diarrhea Skin: denies: Rash Musculoskeletal: denies: Neck pain, Back pain Neurologic: denies: Headache PD PAST MEDICAL HISTORY - Past Medical History Cardiovascular: Coronary artery disease, Angina, [place] Respiratory: None Neuro: CVA, Seizure disorder Endocrine/Autoimmune: None GI: None STONE GLUER: Other : None HEENT: Chronic hearing loss Psych: Depression, Anxiety Musculoskeletal: None Derm: None - Past Surgical History Past Surgical History: Yes Ortho: Other /STONE GLUER: Hysterectomy Cardiovascular: Coronary stent, Cardiac catheterization - Present Medications Home Medications: Ambulatory Orders Medication Instructions Recorded Confirmed Oxycodone HCl/Acetaminophen 1 each PO Q4H PRN #10 tablet 03/07/21 07/04/21 [Percocet 10-325 mg Tablet] HYDROcod/ACETAM 5/325 [[place] 5/325] 1 tab PO Q4HR PRN 07/04/21 07/04/21 Losartan/Hydrochlorothiazide 1 tab PO HS 07/04/21 07/04/21 [Losartan-Hctz 100-12.5 mg Tab] Prazosin HCl [Minipress] 5 mg PO HS 07/04/21 07/04/21 hydrOXYzine HCL [Hydroxyzine HCl] 25 mg PO HS 07/04/21 07/04/21 lamoTRIgine [LaMICtal] 100 mg PO HS 07/04/21 07/04/21 traZODone [Desyrel] 50 mg PO HS 07/04/21 07/04/21 HYDROcod/ACETAM 5/325 [[place] 5/325] 1 - 2 ea PO Q6H PRN #14 tablet 07/26/21 Lidocaine Patch 5% [Lidoderm Patch] 1 patch TOP DAILY PRN #10 patch 07/26/21 - Allergies Allergies/Adverse Reactions: Allergies Allergy/AdvReac Type Severity Reaction Status Date / Time NSAIDS (Non-Steroidal AdvReac Emesis Verified 07/26/21 17:53 Anti-Inflamma - Social History Does the pt smoke?: Yes Smoking Status: Current every day smoker Does the pt drink ETOH?: No Does the pt have substance abuse?: No - Immunizations Immunizations are current?: No Immunizations: TDAP current <10years, Other immun not current - POLST Patient has POLST: No PD ED PE NORMAL - Vitals Vital signs reviewed: Yes - General General: Alert and oriented X 3, No acute distress - HEENT HEENT: Atraumatic, Moist mucous membranes - Neck Neck: Supple, no meningeal sign, No bony TTP - Cardiac Cardiac: RRR, Strong equal pulses - Respiratory Respiratory: No respiratory distress, Clear bilaterally - Abdomen Abdomen: Soft, Non tender, Non distended, Other (Tender to palpation over the left low ribs, mid axillary line. No crepitus. No palpable deformity. No ecchymosis.) - Back Back: No spinal TTP - Derm Derm: Warm and dry - Neuro Neuro: Alert and oriented X 3 - Psych Psych: Normal mood, Normal affect Results - Vitals Vitals: Vital Signs - 24 hr 07/26/21 07/26/21 07/26/21 17:53 18:20 20:14 Temperature 36.5 C Heart Rate 70 71 74 Respiratory 20 22 22 Rate Blood Pressure 200/85 H 154/103 H 175/92 H O2 Saturation 100 96 95 Oxygen O2 Source Room air - Rads (name of study) Left sided chest x-ray with ribs Radiology: Final report received, EMP read contemporaneously, See rad report (No acute abnormality) PD MEDICAL DECISION MAKING - ED course Complexity details: reviewed results, re-evaluated patient, considered differential, d/w patient ED course: 60-year-old female with what appears to be likely rib contusions versus n ondisplaced fractures. Pain well controlled. Will place on pain medication and Lidoderm patches for home. No other acute injuries. I am prescribing a short course of short-acting opioid pain medication for this patient. 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 I have discussed that the opioids are for short term therapy only, and will not be refilled from the ED. patient counseled regarding signs and symptoms for which I believe and urgent re-evaluation would be necessary. Patient with good understanding of and agreement to plan and is comfortable going home at this time This document was made in part using voice recognition software. While efforts are made to proofread this document, sound alike and grammatical errors may occur. Departure - Departure Disposition: Home, Self Care Clinical Impression: Contusion of rib Qualifiers: Encounter type: initial encounter Laterality: left Qualified Code(s): S20.212A - Contusion of left front wall of thorax, initial encounter Condition: Good Instructions: ED Contusion Vs Minor Fx Rib Follow-Up: HUNG RUIZ PA [Primary Care Provider] - Within 1 week Prescriptions: Lidocaine Patch 5% [Lidoderm Patch] 1 patch TOP DAILY PRN #10 patch PRN Reason: pain HYDROcod/ACETAM 5/325 [[place] 5/325] 1 - 2 ea PO Q6H PRN #14 tablet PRN Reason: Pain Comments: Your prescriptions were sent to [facility] in [place]. Please follow-up with your doctor for further care. Return if you worsen. Your x-rays do not show any fractures today. I am prescribing a short course of narcotic pain medication for you. These are potentially dangerous and addictive medications that should be used carefully. These medications may constipate you. Take an [id number] stool softener (docusate) twice daily with plenty of water while taking these medications. If you go 24 hours without a bowel movement, take [id number] miralax, per package instructions. Do not drink or drive while taking these medications. If you received narcotic or sedating medications while in the emergency department, do not drive for 24 hours. Store this medication in a safe, secure place and out of reach of children. It is a violation of federal law to give or sell this medication to another person or to use in a manner other than prescribed. The ED will not refill narcotic prescriptions, including prescriptions lost or stolen. To dispose of unwanted medications: 1. [facility] at [address] in [place] has a medication drop box. They accept prescription medications (in pill form) Friday through Friday 9:00 a.m. to 5:00 p.m. 2. The [facility] [employer] accepts prescription medications (in pill form only) for disposal year round. Call for more information. 3. Contact the [facility] for the next [facility] sponsored prescription drug collection event. , [phone], or [phone]; Discharge Date/Time: 07/26/21 20:14
[2021-07-26 20:15] VITALS: BP 175/92
== END 2021-07-26 20:14 | disposition home or self-care (01) ==
LOC: ED 17:47
DX: S20.212A Contusion of left front wall of thorax, initial encounter (principal); W18.2XXA Fall in (into) shower or empty bathtub, initial encounter; F17.200 Nicotine dependence, unspecified, uncomplicated
CPT/HCPCS: 71101; 99282; 99283; A9270

== ENCOUNTER 2021-08-03 12:12 | Outpatient (CLI) | payer MEDICAID ==
[2021-08-03] MEDS ORDERED: lidocaine 1% 20 ML MDV ONE (12:31)
--- NOTE | 2021-08-03 14:17 | CT Report ---
PROCEDURE: LOWER EXTREMITY W - LT INDICATIONS: BURSITIS LEFT HIP/ ARTHOGRAM TECHNIQUE: After administration of contrast 3 mm axial sections acquired of the left hip, with coronal and sagit jose a reformats. For radiation dose reduction, the following was used: automated exposure control, ad justment of mA and/or kV according to patient size. CONTRAST: IV CONTRAST: *NO IV CONTRAST PO CONTRAST: *NO PO CONTRAST COMPARISON: None. FINDINGS: Small amount of contrast within the joint. BONES/JOINT: No acute, displaced fracture or dislocation. The femoral head is seated within the aceta bulum. Prominent osteophytosis of the superior acetabulum. Osteophytosis is also seen about the femor al head. The sacroiliac joint is patent. MUSCULATURE: No significant atrophy. SOFT TISSUES: No focal abnormality. IMPRESSION: 1.Prominent osteophytosis of the superior acetabulum, which is nonspecific but can be seen in the set ting of femoral acetabular impingement. Reviewed by: Luac Moran MD on 08/03/2021 2:16 PM PST Approved by: Luca Moran MD on 08/03/2021 2:16 PM PST Station ID: [id number]
[2021-08-03] MEDS ORDERED: lidocaine 1% 20 ML MDV SUBQ ONE (14:30)
[2021-08-03] MEDS ORDERED: iohexoL-240 10 ML VIAL IVP ONE (14:32)
--- NOTE | 2021-08-03 15:18 | XRAY Report ---
PROCEDURE: Arthrogram Needle Placement INDICATIONS: BURSITIS CONTRAST: CONTRAST: OMNIPAQUE 240 FLUOROSCOPY TIME: FLUORO TIME: 0.2 and NUMBER IMAGES: 2 TECHNIQUE: The indications, alternatives, benefits, risks, and complications of the procedure were explained to the patient. Written informed consent was obtained and placed in the chart. The hip was examined fl uoroscopically with the legs fixed in slight internal rotation, and a site for needle placement chose n for entry into the hip joint from an anterior approach. Care was taken to locate the common femora l artery and vein beforehand. The skin was prepped and draped in the usual fashion, and 1% Lidocaine infiltrated from skin down to joint capsule. A spinal needle was inserted into the joint, and a sma ll amount of iodinated contrast media injected to confirm intra-articular placement of the needle tip . This was followed by approximately 10 mL dilute solution of a iodinated contrast agent. The needle was removed and a dressing was applied. The patient was given postprocedural instructions and sent to the CT suite for imaging. FINDINGS: A single fluoroscopic spot image demonstrates contrast anterior to the left femoral neck tracking inf eriorly to the left hip joint. IMPRESSION: Fluoroscopically guided administration of dilute iodinated contrast solution into the hip joint for C T arthrogram. Reviewed by: Noel Larios MD on 08/03/2021 3:17 PM PST Approved by: Noel Larios MD on 08/03/2021 3:17 PM PST Station ID: [id number]
== END 2021-08-03 12:13 | disposition home or self-care (01) ==
LOC: DI 12:12
PROVIDERS: ATTEND Physician Assistant Surgical
DX: M70.62 Trochanteric bursitis, left hip (principal); M25.752 Osteophyte, left hip
CPT/HCPCS: 27093; 73525; 73701; 77002; Q9966

== ENCOUNTER 2021-08-15 21:08 | Outpatient (CLI) | payer MEDICAID | END 2021-08-15 21:09 | disposition short-term general hospital (02) | LOC: EMS 21:08 | DX: R07.9 Chest pain, unspecified (principal); I25.2 Old myocardial infarction; Z95.0 Presence of cardiac pacemaker | CPT/HCPCS: A0425; A0427; A0999 ==

== ENCOUNTER 2022-03-12 17:22 | Outpatient (CLI) | payer MEDICAID | END 2022-03-12 23:59 | disposition short-term general hospital (02) | LOC: EMS 17:22 | DX: G89.18 Other acute postprocedural pain (principal); Z96.642 Presence of left artificial hip joint | CPT/HCPCS: A0425; A0427; A0999 ==

== ENCOUNTER 2022-03-28 13:39 | Outpatient (CLI) | payer MEDICAID | END 2022-03-28 13:40 | disposition critical access hospital (66) | LOC: EMS 13:39 | DX: R07.9 Chest pain, unspecified (principal); R06.02 Shortness of breath; F41.9 Anxiety disorder, unspecified; R20.2 Paresthesia of skin; R25.2 Cramp and spasm; R45.89 Other symptoms and signs involving emotional state | CPT/HCPCS: A0425; A0429; A0999 ==

== ENCOUNTER 2022-03-28 14:03 | Emergency (ER) | payer MEDICAID ==
[2022-03-28 14:18] VITALS: BP 199/156
[2022-03-28] MEDS ORDERED: LORazepam 2 MG/ML VIAL IVP STA (14:36)
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
[2022-03-28] MEDS ORDERED: ONDANSETRON 4 MG/2 ML VIAL IVP STA (14:43)
[2022-03-28] MEDS ORDERED: oxyCODONE 5 MG TABLET PO STA (16:07)
== END 2022-03-28 16:13 | disposition home or self-care (01) ==
LOC: EDUNIT# → ED 14:03
DX: F43.0 Acute stress reaction (principal); F41.9 Anxiety disorder, unspecified; Z96.642 Presence of left artificial hip joint; I10 Essential (primary) hypertension; I25.10 Atherosclerotic heart disease of native coronary artery without angina pectoris; Z95.5 Presence of coronary angioplasty implant and graft; Z95.0 Presence of cardiac pacemaker; F17.200 Nicotine dependence, unspecified, uncomplicated
CPT/HCPCS: 96374; 99283; A9270; J2060

== ENCOUNTER → 2022-04-26 | Outpatient (CLI) | payer MEDICAID | END | disposition critical access hospital (66) | LOC: EMS 09:37 | DX: R05.9 Cough, unspecified (principal); R06.02 Shortness of breath; R42 Dizziness and giddiness; R51.9 Headache, unspecified | CPT/HCPCS: A0425; A0429; A0999 ==

== ENCOUNTER → 2022-05-04 | Outpatient (CLI) | payer MEDICAID | END | disposition left against medical advice (07) | LOC: EMS 09:36 | DX: R07.9 Chest pain, unspecified (principal) ==

== ENCOUNTER 2022-05-11 14:24 | Outpatient (CLI) | payer MEDICAID | END 2022-05-11 14:25 | disposition short-term general hospital (02) | LOC: EMS 14:24 | DX: M25.552 Pain in left hip (principal); W18.30XA Fall on same level, unspecified, initial encounter; Z96.642 Presence of left artificial hip joint | CPT/HCPCS: A0425; A0429; A0999 ==

== ENCOUNTER 2022-05-30 17:53 | Outpatient (CLI) | payer MEDICAID | END 2022-05-30 17:54 | disposition short-term general hospital (02) | LOC: EMS 17:53 | DX: R51.9 Headache, unspecified (principal); R11.0 Nausea; I10 Essential (primary) hypertension; R23.4 Changes in skin texture | CPT/HCPCS: A0425; A0427; A0999 ==

== ENCOUNTER 2022-06-07 16:23 | Outpatient (CLI) | payer MEDICAID | END 2022-06-07 16:24 | disposition critical access hospital (66) | LOC: EMS 16:23 | DX: R42 Dizziness and giddiness (principal); I10 Essential (primary) hypertension | CPT/HCPCS: A0425; A0429; A0999 ==

== ENCOUNTER 2022-06-07 17:17 | Emergency (ER) | payer MEDICAID ==
[2022-06-07 17:55] VITALS: BP 200/100
[2022-06-07 18:54] LABS: CALCIUM 8.8 mg/dL (8.5-10.3); CREATININE 0.9 mg/dL (0.4-1.0); POTASSIUM 4.2 mmol/L (3.5-5.0)
== END 2022-06-07 19:33 | disposition left against medical advice (07) ==
LOC: EDUNIT# → ED 17:17
DX: Z53.21 Procedure and treatment not carried out due to patient leaving prior to being seen by health care provider (principal)
CPT/HCPCS: 36415; 80048

== ENCOUNTER 2022-06-09 19:36 | Outpatient (CLI) | payer MEDICAID | END 2022-06-09 19:37 | disposition short-term general hospital (02) | LOC: EMS 19:36 | DX: R07.89 Other chest pain (principal); R51.9 Headache, unspecified; I10 Essential (primary) hypertension; H53.8 Other visual disturbances; R11.0 Nausea | CPT/HCPCS: A0425; A0427; A0999 ==

== ENCOUNTER 2022-08-25 11:51 | Outpatient (CLI) | payer MEDICAID | END 2022-08-25 13:04 | disposition short-term general hospital (02) | LOC: EMS 11:51 | DX: G89.18 Other acute postprocedural pain (principal); Z96.641 Presence of right artificial hip joint | CPT/HCPCS: A0425; A0427; A0999 ==

== ENCOUNTER 2022-10-14 14:42 | Outpatient (CLI) | payer MEDICAID | END 2022-10-14 14:43 | disposition critical access hospital (66) | LOC: EMS 14:42 | DX: I10 Essential (primary) hypertension (principal) | CPT/HCPCS: A0425; A0427; A0999 ==

== ENCOUNTER 2022-10-14 15:04 | Emergency (ER) | payer MEDICAID ==
[2022-10-14 15:57] LABS: CALCIUM 9.1 mg/dL (8.5-10.3); CREATININE 0.8 mg/dL (0.4-1.0); POTASSIUM 3.7 mmol/L (3.5-5.0)
[2022-10-14] MEDS ORDERED: oxyCODONE 5 MG TABLET PO STA (16:32)
--- NOTE | 2022-10-14 16:34 | ED Physician Documentation ---
History of Present Illness - Stated complaint Stated Complaint: HIGH BP - Chief complaint Chief Complaint: Cardiac - History obtained from History obtained from: Patient - Additonal information Additional information: 62-year-old woman with history of cardiomyopathy with AICD in place, recent hip replacement was in physical therapy today where her blood pressure was on the order of 230/130. She complains of postoperative hip pain and would like one of her oxycodone. She is taking losartan and metoprolol for her blood pressure. Was on chlorthalidone, no longer. 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 HEENT: Chronic hearing loss Psych: Depression, Anxiety Musculoskeletal: None Derm: None - Past Surgical History Past Surgical History: Yes Ortho: Other /DRAFTER PATENT: Hysterectomy Cardiovascular: Coronary stent, Cardiac catheterization - Present Medications Home Medications: Ambulatory Orders Medication Instructions Recorded Confirmed Losartan/Hydrochlorothiazide 1 tab PO HS 07/04/21 07/04/21 [Losartan-Hctz 100-12.5 mg Tab] lamoTRIgine [LaMICtal] 100 mg PO HS 07/04/21 07/04/21 Gabapentin [Neurontin] 100 mg PO TID 10/14/22 10/14/22 Metoprolol Succinate 100 mg PO BID #60 tab 10/14/22 Metoprolol Succinate [Toprol Xl] 50 mg PO BID 10/14/22 10/14/22 - Allergies Allergies/Adverse Reactions: Allergies Allergy/AdvReac Type Severity Reaction Status Date / Time cephalexin Allergy Unknown Verified 10/14/22 15:16 ketorolac [From Toradol] Allergy Unknown Verified 10/14/22 15:16 tramadol Allergy Unknown Verified 10/14/22 15:16 NSAIDS (Non-Steroidal AdvReac Emesis Verified 10/14/22 15:16 Anti-Inflamma - Social History Does the pt smoke?: Yes Smoking Status: Current every day smoker Does the pt drink ETOH?: No Does the pt have substance abuse?: No - Immunizations Immunizations are current?: No Immunizations: TDAP current <10years, Other immun not current - POLST Patient has POLST: No PD ED PE NORMAL - Vitals Vital signs reviewed: Yes - General General: Alert and oriented X 3, No acute distress - Cardiac Cardiac: RRR, No murmur - Respiratory Respiratory: No respiratory distress, Clear bilaterally - Abdomen Abdomen: Non tender - Neuro Neuro: Alert and oriented X 3, Normal speech Results - Vitals Vitals: Vital Signs - 24 hr 10/14/22 10/14/22 15:13 17:44 Temperature 37.2 C Heart Rate 60 84 Respiratory 18 18 Rate Blood Pressure 173/102 H 211/92 H O2 Saturation 99 100 Oxygen O2 Source Room air - EKG (time done) 1601 EKG releavant findings:: EKG personally interpreted by author of this note. Relevant findings are: Rate: Rate (enter#) (60) Rhythm: Paced (atrial paced) Intervals: Normal OK QRS: Normal Ischemia: Normal ST segments - Labs Labs: Laboratory Tests 10/14/22 15:43 Sodium 141 Potassium 3.7 Chloride 104 Carbon Dioxide 28 Anion Gap 9.0 BUN 6 Creatinine 0.8 Estimated GFR (MDRD) 73 L Glucose 83 Calcium 9.1 PD Medical Decision Making - ED course ED course: 62-year-old woman with some palpitations in the setting of elevated blood pressure. She has an AICD in place and her pacemaker is working appropriately. As such I will increase her metoprolol. She specifically requesting oxycodone and Ativan here. EKG and BMP are unremarkable. Departure - Departure Disposition: 01 Home, Self Care Clinical Impression: Hypertension Qualifiers: Hypertension type: primary hypertension Qualified Code(s): I10 - Essential (primary) hypertension Condition: Good Record reviewed to determine appropriate education?: Yes Instructions: ED Hypertension Conf Out Of Control Prescriptions: Metoprolol Succinate 100 mg PO BID #60 tab Comments: Continue your current dose of losartan. That said I would have you double your dose of metoprolol to 100 mg twice a day. I am writing an extra prescription just in case so you do not run out early. 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 Discharge Date/Time: 10/14/22 18:00
[2022-10-14] MEDS ORDERED: LORazepam 2 MG/ML VIAL IVP STA (16:43)
[2022-10-14 17:45] VITALS: BP 211/92
== END 2022-10-14 18:00 | disposition home or self-care (01) ==
LOC: EDUNIT# → ED 15:04
DX: I10 Essential (primary) hypertension (principal); F17.200 Nicotine dependence, unspecified, uncomplicated; Z96.649 Presence of unspecified artificial hip joint; Z95.0 Presence of cardiac pacemaker
CPT/HCPCS: 36415; 80048; 93005; 96374; 99284; A9270; J2060

== ENCOUNTER 2022-10-27 16:22 | Outpatient (CLI) | payer MEDICAID | END 2022-10-27 16:23 | disposition short-term general hospital (02) | LOC: EMS 16:22 | DX: I10 Essential (primary) hypertension (principal); R51.9 Headache, unspecified; H53.9 Unspecified visual disturbance; H93.19 Tinnitus, unspecified ear; R45.1 Restlessness and agitation; R11.0 Nausea | CPT/HCPCS: A0425; A0429; A0999 ==

== ENCOUNTER 2022-10-30 13:15 | Outpatient (CLI) | payer MEDICAID | END 2022-10-30 13:16 | disposition short-term general hospital (02) | LOC: EMS 13:15 | DX: R07.9 Chest pain, unspecified (principal); R00.0 Tachycardia, unspecified; Z95.0 Presence of cardiac pacemaker; M25.552 Pain in left hip; W18.30XA Fall on same level, unspecified, initial encounter; Y92.039 Unspecified place in apartment as the place of occurrence of the external cause | CPT/HCPCS: A0425; A0427; A0999 ==

== ENCOUNTER 2023-01-15 13:46 | Outpatient (CLI) | payer MEDICAID | END 2023-01-15 13:47 | disposition short-term general hospital (02) | LOC: EMS 13:46 | DX: Z04.3 Encounter for examination and observation following other accident (principal); M25.552 Pain in left hip; M25.551 Pain in right hip | CPT/HCPCS: A0425; A0427; A0999 ==

== ENCOUNTER 2023-04-01 13:37 | Outpatient (CLI) | payer MEDICAID | END 2023-04-01 13:38 | disposition critical access hospital (66) | LOC: EMS 13:37 | DX: M53.3 Sacrococcygeal disorders, not elsewhere classified (principal); M25.552 Pain in left hip; W19.XXXA Unspecified fall, initial encounter; Y92.002 Bathroom of unspecified non-institutional (private) residence as the place of occurrence of the external cause; R11.2 Nausea with vomiting, unspecified; R07.9 Chest pain, unspecified | CPT/HCPCS: A0425; A0429; A0999 ==

== ENCOUNTER 2023-04-01 14:01 | Emergency (ER) | payer MEDICAID ==
[2023-04-01 14:39] VITALS: BP 125/88; O2SAT 98
[2023-04-01] MEDS ORDERED: HYDROmorphone 1 MG/ML CARPUJECT IM STA (14:45)
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
[2023-04-01] MEDS ORDERED: HYDROmorphone 1 MG/ML CARPUJECT IVP STA ×2 (15:13→16:31)
--- NOTE | 2023-04-01 17:22 | CT Report ---
PROCEDURE: PELVIS WO INDICATIONS: glf; eval for pelvic or hip fx fracture TECHNIQUE: Noncontrast 3 mm axial sections acquired through the bony pelvis, with coronal and sagittal reformatt ing. For radiation dose reduction, the following was used: automated exposure control, adjustment of mA and/or kV according to patient size. COMPARISON: Correlation is made with prior abdomen pelvis CT, FINDINGS: Image quality: There is artifact associated with the metallic hardware. Bones: Bilateral hip arthroplasty hardware is seen, with associated prominent streak artifact. To the limits of this study, no displaced fracture is Postoperative change can be seen of the lower lumbar spine, with removal of portions of the posterior elements. There is a chronic bone fragment seen along the posterior lateral aspect of the right quintin c bone, as on series 2 image 10. Identified. Soft tissues: No dilated loops of small bowel can be seen. A normal appendix is seen. Diverticulos is can be seen, without gatito findings of active diverticulitis. This patient is status post hysterec roxana. No adnexal masses can be seen. No bladder wall thickening is seen. No enlarged inguinal or pe lvic lymph nodes are seen. Atherosclerotic calcification is seen. IMPRESSION: No displaced fracture can be seen to the limits of this study, with prominent streak artifact. Bilateral hip arthroplasty hardware is seen. Additional findings: Lower lumbar spine postoperative change Hysterectomy Diverticulosis, without findings of active diverticulitis. Reviewed by: Pedro Rodriges MD on 04/01/2023 4:20 PM [place] Approved by: Pedro Rodriges MD on 04/01/2023 4:20 PM [facility] Station ID: [id number]
== END 2023-04-01 19:14 | disposition home or self-care (01) ==
LOC: EDUNIT# → ED 14:01
DX: M25.552 Pain in left hip (principal); F17.200 Nicotine dependence, unspecified, uncomplicated
CPT/HCPCS: 72192; 96374; 96376; 99283; 99284; J1170

== ENCOUNTER 2023-05-26 22:05 | Outpatient (CLI) | payer MEDICAID | END 2023-05-26 22:06 | disposition short-term general hospital (02) | LOC: EMS 22:05 | DX: R07.9 Chest pain, unspecified (principal); R11.0 Nausea; R06.02 Shortness of breath; R51.9 Headache, unspecified; F41.9 Anxiety disorder, unspecified; R53.81 Other malaise | CPT/HCPCS: A0425; A0427; A0999 ==

== ENCOUNTER 2023-07-23 11:32 | Emergency (ER) | payer MEDICAID ==
--- NOTE | 2023-07-23 12:03 | ED Physician Documentation ---
History of Present Illness - Stated complaint Stated Complaint: HIP/BACK PX - Chief complaint Chief Complaint: Back Pain - Additonal information Additional information: 62-year-old female presents emergency department for sacral pain and tenderness. Patient has had bilateral hip surgeries she is unsure what kind she has had a couple falls within the last 8 to 9 months but nothing that brought her to the emergency department. About 2 weeks ago she started having worsening lower back pain around her sacral region she said that she is taken multiple Tylenol's at home and nothing seems to be helping with the pain or discomfort. She had an appoint with her orthopedic surgeon Dr. Diggs in [place] yesterday but unfortunately due to transportation issues she was not able to get to the appointment. Her primary care provider told her to come to the emergency department for further evaluation. 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 HELPER: Hysterectomy Cardiovascular: Coronary stent, Cardiac catheterization - Present Medications Home Medications: Ambulatory Orders Medication Instructions Recorded Confirmed Losartan/Hydrochlorothiazide 1 tab PO HS 07/04/21 07/23/23 [Losartan-Hctz 100-12.5 mg Tab] lamoTRIgine [LaMICtal] 100 mg PO HS 07/04/21 07/23/23 Gabapentin [Neurontin] 100 mg PO TID 10/14/22 07/23/23 Amitriptyline [Elavil] 25 mg PO QPM 07/23/23 07/23/23 Oxycodone HCl/Acetaminophen 1 each PO Q6HR PRN #10 tablet 07/23/23 [Percocet 5-325 mg Tablet] PARoxetine HCL [Paxil] 40 mg PO DAILY 07/23/23 07/23/23 Prazosin HCl [Minipress] 5 mg PO DAILY 07/23/23 07/23/23 amLODIPine [Norvasc] 5 mg PO DAILY 07/23/23 07/23/23 carvediloL [Coreg] 12.5 mg PO DAILY 07/23/23 07/23/23 hydrOXYzine HCL [Hydroxyzine HCl] 25 mg PO Q8HR PRN 07/23/23 07/23/23 - Allergies Allergies/Adverse Reactions: Allergies Allergy/AdvReac Type Severity Reaction Status Date / Time cephalexin Allergy Unknown Verified 07/23/23 11:47 ketorolac [From Toradol] Allergy Unknown Verified 07/23/23 11:47 tramadol Allergy Unknown Verified 07/23/23 11:47 NSAIDS (Non-Steroidal AdvReac Emesis Verified 07/23/23 11:47 Anti-Inflamma - Social History Does the pt smoke?: Yes Smoking Status: Former smoker Does the pt drink ETOH?: Yes Does the pt have substance abuse?: Yes Substance Use and Type: Marijuana - Immunizations Immunizations are current?: No Immunizations: TDAP current <10years, Other immun not current - POLST Patient has POLST: No PD ED PE NORMAL - Vitals Vital signs reviewed: Yes - General General: Alert and oriented X 3, No acute distress, Well developed/nourished - HEENT HEENT: Atraumatic - Abdomen Abdomen: Normal bowel sounds, Soft, Non tender, Non distended, No organomegaly - Back Back: Other (tendernes with palpation to lumbar/sacral region, no weakness, no paresthesias.) - Derm Derm: Normal color, Warm and dry, No rash - Extremities Extremities: No edema, No calf tenderness / cord - Free text exam Free text exam: Straight leg raise test is negative bilaterally. Sensation to the upper and lower extremities is normal bilaterally. No clonus is noted. Vegetable Trimmer strength is normal bilaterally. Dorsi/plantar flexion is normal bilaterally. Results - Vitals Vitals: Vital Signs - 24 hr 07/23/23 11:47 Temperature 36.3 C L Heart Rate 64 Respiratory 18 Rate Blood Pressure 146/72 H O2 Saturation 99 Oxygen O2 Source Room air - Rads (name of study) CT pelvis Relevant Findings:: Final report received, EMP independent interpretation of test, Other (No fracture or dislocation mild degenerative changes of the lumbosacral spine and pubic bones) PD Medical Decision Making - ED course ED course: This patient presents with back pain most consistent with lumbar strain. Differential diagnoses includes lumbago versus musculoskeletal spasm / strain versus sciatica. Less likely sciatica as straight leg raise test was negative. No back pain red flags on history or physical. Presentation not consistent with malignancy, fracture (no trauma, no bony tenderness to palpation), cauda equina (no bowel or urinary incontinence/retention, no saddle anesthesia, no distal weakness), AAA, viscus perforation, osteomyelitis or epidural abscess (no IVDU, vertebral tenderness), renal colic, pyelonephritis (afebrile, no CVAT, no urinary symptoms). Patient is adamant that she needed imaging we went ahead and did a CT pelvis which did not reveal any acute abnormalities or findings no fractures or dislocations only thing showed was degenerative changes of the lumbosacral spine and pubic bones. Patient has a follow-up appoint with her orthopedic surgeon soon she was told to call them to see if she is able to get on the cancellation list if she needs to get in sooner. I am prescribing a short course of short-acting opioid pain medication for this patient. I have reviewed the patients RN RENAL and no concerning findings were noted. I have discussed that the opioids are for short term therapy only, and will not be refilled from the ED. She is given strict ER return precautions all questions answered Departure - Departure Disposition: 01 Home, Self Care Clinical Impression: Lumbar pain Lumbar strain Qualifiers: Encounter type: initial encounter Qualified Code(s): S39.012A - Strain of muscle, fascia and tendon of lower back, initial encounter Instructions: ED Back Care Tips Prescriptions: Oxycodone HCl/Acetaminophen [Percocet 5-325 mg Tablet] 1 each PO Q6HR PRN #10 tablet PRN Reason: Pain >8 Comments: Thank you for trusting us with your care. We have completed the CT scan of your lower back we did not see any acute abnormalities or findings at this time. There is no fractures or dislocations there is some mild degenerative changes of the lumbosacral spine and pubic bones. Please follow-up with your orthopedic surgeon for further evaluation of this. I am prescribing a short course of narcotic pain medication for you. These are potentially dangerous and addictive medications that should be used carefully. These medications may constipate you. Take an fjxp-flz-hzwlozy stool softener (docusate) twice daily with plenty of water while taking these medications. If you go 24 hours without a bowel movement, take tijv-vco-ptbmciz miralax, per package instructions. Do not drink or drive while taking these medications. If you received narcotic or sedating medications while in the emergency department, do not drive for 24 hours. Store this medication in a safe, secure place and out of reach of children. It is a violation of federal law to give or sell this medication to another person or to use in a manner other than prescribed. The ED will not refill narcotic prescriptions, including prescriptions lost or stolen. To dispose of unwanted medications: 1. [facility] at [address] in [place] has a medication drop box. They accept prescription medications (in pill form) Friday through Friday 9:00 a.m. to 5:00 p.m. 2. The [facility] [employer] accepts prescription medications (in pill form only) for disposal year round. Call for more information. 3. Contact the [facility] for the next [facility] sponsored prescription drug collection event. , [phone], or [phone]; Note that many narcotic pain relievers also contain Tylenol/acetaminophen. Please ensure that your total dose of acetaminophen from all sources does not exceed 3 g (3000 mg) per day. TECHNIQUE: Noncontrast 3 mm axial sections acquired through the bony pelvis, with coronal and sagittal reformatting. For radiation dose reduction, the following was used: automated exposure control, adjustment of mA and/or kV according to patient size. COMPARISON: 04/01/2023 FINDINGS: Image quality: Diagnostic, within the limitations of metallic artifact Bones: The pelvic ring appears intact. 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 No displaced fracture or dislocation is identified. Mild pubic symphysis degenerative changes. No di splaced fracture is identified. The sacroiliac joints are congruent, with mild degenerative changes. Lumbosacral spondylosis also seen. Prior posterior decompression. Soft tissues: Colonic diverticula. Mild fat stranding in the post lumbar soft tissues, possibly postprocedural. No drainable fluid collection. The intrapelvic structures are not well evaluated on this study. The uterus is not seen. Calcified granuloma posterior to the right iliac bone. IMPRESSION: The pelvic ring appears congruent. There is no displaced fracture or dislocation. Mild degenerative changes of the lumbosacral spine and pubic bones. Post lumbar postsurgical changes without fluid collection. Discharge Date/Time: 07/23/23 16:33
[2023-07-23 12:05] VITALS: BP 146/72; O2SAT 99
[2023-07-23] MEDS: oxyCODONE 5 MG TABLET PO STA (12:24)
[2023-07-23] MEDS: LIDOCAINE PATCH 4% TOP STA (12:27)
--- NOTE | 2023-07-23 15:58 | CT Report ---
PROCEDURE: Pelvis WO INDICATIONS: sacrum pain TECHNIQUE: Noncontrast 3 mm axial sections acquired through the bony pelvis, with coronal and sagittal reformatt ing. For radiation dose reduction, the following was used: automated exposure control, adjustment of mA and/or kV according to patient size. COMPARISON: 04/01/2023 FINDINGS: Image quality: Diagnostic, within the limitations of metallic artifact Bones: The pelvic ring appears intact. 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 No displaced fracture o r dislocation is identified. Mild pubic symphysis degenerative changes. No displaced fracture is iden tified. The sacroiliac joints are congruent, with mild degenerative changes. Lumbosacral spondylosis also seen. Prior posterior decompression. Soft tissues: Colonic diverticula. Mild fat stranding in the post lumbar soft tissues, possibly postp rocedural. No drainable fluid collection. The intrapelvic structures are not well evaluated on this study. The uterus is not seen. Calcified granuloma posterior to the right iliac bone. IMPRESSION: The pelvic ring appears congruent. There is no displaced fracture or dislocation. Mild degenerative c hanges of the lumbosacral spine and pubic bones. Post lumbar postsurgical changes without fluid collection. If there is high concern for further derangement, consider MRI evaluation. Reviewed by: Troy Soto MD on 07/23/2023 3:57 PM PST Approved by: Troy Soto MD on 07/23/2023 3:57 PM PST Station ID: [id number]
== END 2023-07-23 16:33 | disposition home or self-care (01) ==
LOC: ED 11:32
DX: S39.012A Strain of muscle, fascia and tendon of lower back, initial encounter (principal); X58.XXXA Exposure to other specified factors, initial encounter; Z87.891 Personal history of nicotine dependence
CPT/HCPCS: 72192; 99284; A9270

== ENCOUNTER 2023-09-17 10:46 | Emergency (ER) | payer MEDICAID ==
--- NOTE | 2023-09-17 11:43 | ED Physician Documentation ---
History of Present Illness - Stated complaint Stated Complaint: HEAD PX - Chief complaint Chief Complaint: General - History obtained from History obtained from: Patient - Additonal information Additional information: She developed adult onset headaches. Has been seeing a neurologist. At first they were attributed to her blood pressure and which she was placed on blood pressure medicine which has been somewhat helpful. But she woke with her usual right-sided severe headache with light sensitivity and nausea at 430 this morning. She took Tylenol for it which was not effective. She is allergic to NSAIDs including Toradol, and has appoint with her neurologist with plan for Botox therapy for these headaches mid next month. There was no sudden onset headache. 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 Cardiovascular: Coronary stent, Cardiac catheterization - Present Medications Home Medications: Ambulatory Orders Medication Instructions Recorded Confirmed Losartan/Hydrochlorothiazide 1 tab PO HS 07/04/21 07/23/23 [Losartan-Hctz 100-12.5 mg Tab] lamoTRIgine [LaMICtal] 100 mg PO HS 07/04/21 07/23/23 Gabapentin [Neurontin] 100 mg PO TID 10/14/22 07/23/23 Amitriptyline [Elavil] 25 mg PO QPM 07/23/23 07/23/23 Oxycodone HCl/Acetaminophen 1 each PO Q6HR PRN #10 tablet 07/23/23 [Percocet 5-325 mg Tablet] PARoxetine HCL [Paxil] 40 mg PO DAILY 07/23/23 07/23/23 Prazosin HCl [Minipress] 5 mg PO DAILY 07/23/23 07/23/23 amLODIPine [Norvasc] 5 mg PO DAILY 07/23/23 07/23/23 carvediloL [Coreg] 12.5 mg PO DAILY 07/23/23 07/23/23 hydrOXYzine HCL [Hydroxyzine HCl] 25 mg PO Q8HR PRN 07/23/23 07/23/23 - Allergies Allergies/Adverse Reactions: Allergies Allergy/AdvReac Type Severity Reaction Status Date / Time cephalexin Allergy Unknown Verified 09/17/23 10:54 ketorolac [From Toradol] Allergy Unknown Verified 09/17/23 10:54 tramadol Allergy Unknown Verified 09/17/23 10:54 NSAIDS (Non-Steroidal AdvReac Emesis Verified 09/17/23 10:54 Anti-Inflamma - Social History Does the pt smoke?: Yes Smoking Status: Current every day smoker Does the pt drink ETOH?: Yes Does the pt have substance abuse?: Yes - Immunizations Immunizations are current?: No Immunizations: TDAP current <10years, Other immun not current - POLST Patient has POLST: No PD ED PE NORMAL - Vitals Vital signs reviewed: Yes - General General: Alert and oriented X 3, Other (She appears uncomfortable with exquisite light sensitivity) - HEENT HEENT: PERRL, EOMI - Neck Neck: Supple, no meningeal sign - Neuro Neuro: Alert and oriented X 3, client analyst 2-12 intact Eye Opening: Spontaneous Motor: Obeys Commands Verbal: Oriented GCS Score: 15 Results - Vitals Vitals: Vital Signs - 24 hr 09/17/23 10:51 Temperature 36.7 C Heart Rate 81 Respiratory 20 Rate Blood Pressure 166/93 H O2 Saturation 99 Oxygen O2 Source Room air - EKG (time done) 1107 EKG releavant findings:: EKG personally interpreted by author of this note. Relevant findings are: Rate: Rate (enter#) (73) Rhythm: NSR [place]: Normal Intervals: Normal DE QRS: Normal Ischemia: Non specific changes (Flat to slightly flipped T waves inferior and lateral. This is chronic compared to EKG dated April 26, 2022.). No: ST elevation c/w ischemia PD Medical Decision Making - ED course ED course: The headache is gradual in onset and similar to prior headaches. As such I doubt subarachnoid hemorrhage. There are no infectious symptoms such as fever or stiff neck to make me suspect meningitis. No carbon monoxide exposure by history. Initially had ordered IV medications for her, but after a time was notified by the nurse that despite several attempts IV access was not available. Pivoted and gave her milligram of IV intramuscular Dilaudid and small dose of intramuscular droperidol. On reevaluation at approximately 1:17 PM she was feeling significant relief, but insufficient for discharge and I wrote for 10 mg of IM Reglan and 0.5 mg of IM Dilaudid. She still had no neck stiffness or meningismus on reevaluation at that time and did appear much more comfortable and less light sensitive. Departure - Departure Disposition: 01 Home, Self Care Clinical Impression: Migraine Qualifiers: Migraine type: unspecified Status migrainosus presence: with status migrainosus Intractability: intractable Qualified Code(s): G43.911 - Migraine, unspecified, intractable, with status migrainosus Condition: Good Record reviewed to determine appropriate education?: Yes Instructions: ED Headache Migraine Comments: The pattern of your symptoms does suggest migraine. Follow-up with your neurologist as scheduled for Botox. Return for new or worsening symptoms. Forms: PCP List
[2023-09-17] MEDS: DROPERIDOL 5 MG/2 ML VIAL IVP STA (11:57)
[2023-09-17] MEDS: DEXAMETHASONE 10 MG/ML VIAL IVP STA (11:57)
[2023-09-17] MEDS: HYDROmorphone 1 MG/ML CARPUJECT IVP STA (11:57)
[2023-09-17] MEDS: SODIUM CHLORIDE 0.9% 1,000 ML IV STA (11:57)
[2023-09-17] MEDS: DEXAMETHASONE 10 MG/ML VIAL PO STA (12:38)
[2023-09-17] MEDS: CHERRY SYRUP 10 ML UDC PO ONE (12:38)
[2023-09-17] MEDS: HYDROmorphone 1 MG/ML CARPUJECT IM STA ×2 (12:40→13:26)
[2023-09-17] MEDS: DROPERIDOL 5 MG/2 ML VIAL IM STA (12:43)
[2023-09-17] MEDS: METOCLOPRAMIDE 10 MG/2 ML VIAL IM STA (13:26)
[2023-09-17 13:34] VITALS: BP 153/80; O2SAT 100
== END 2023-09-17 13:39 | disposition home or self-care (01) ==
LOC: ED 10:46
DX: G43.911 Migraine, unspecified, intractable, with status migrainosus (principal); I25.10 Atherosclerotic heart disease of native coronary artery without angina pectoris; F17.200 Nicotine dependence, unspecified, uncomplicated; Z86.73 Personal history of transient ischemic attack (TIA), and cerebral infarction without residual deficits; Z79.899 Other long term (current) drug therapy
CPT/HCPCS: 93005; 96372; 99283; 99284; A9270; J1170; J2765

== ENCOUNTER 2023-10-03 10:03 | Emergency (ER) | payer MEDICAID ==
--- NOTE | 2023-10-03 11:19 | ED Physician Documentation ---
PD HPI LOWER EXT INJURY - Stated complaint Stated Complaint: GLF - Chief complaint Chief Complaint: Ext Problem - History obtained from History obtained from: Patient - History of Present Illness PD HPI LOW EXT INJURY LOCATION: Right, Hip Type of injury: Fall Timing - onset: How many days ago (2) Timing - duration: Days Timing - details: Abrupt onset, Still present (tripped and fell to right, with pain hip and chest. Thought would get better but has not. Pain with walking in right hip. 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 HEENT: Chronic hearing loss Psych: Depression, Anxiety Musculoskeletal: None Derm: None - Past Surgical History Past Surgical History: Yes Ortho: Hip replacement, 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 Cardiovascular: Coronary stent, Cardiac catheterization - Present Medications Home Medications: Ambulatory Orders Medication Instructions Recorded Confirmed Losartan/Hydrochlorothiazide 1 tab PO HS 07/04/21 10/03/23 [Losartan-Hctz 100-12.5 mg Tab] lamoTRIgine [LaMICtal] 100 mg PO HS 07/04/21 10/03/23 Amitriptyline [Elavil] 25 mg PO QPM 07/23/23 10/03/23 Prazosin HCl [Minipress] 5 mg PO DAILY 07/23/23 10/03/23 amLODIPine [Norvasc] 5 mg PO DAILY 07/23/23 10/03/23 carvediloL [Coreg] 12.5 mg PO DAILY 07/23/23 10/03/23 hydrOXYzine HCL [Hydroxyzine HCl] 25 mg PO Q8HR PRN 07/23/23 10/03/23 HYDROcod/ACETAM 5/325 [[place] 5/325] 1 ea PO Q6H PRN #18 tablet 10/03/23 methocarbamoL [Robaxin] 500 mg PO Q6H PRN #30 tablet 10/03/23 - Allergies Allergies/Adverse Reactions: Allergies Allergy/AdvReac Type Severity Reaction Status Date / Time cephalexin Allergy Unknown Verified 10/03/23 10:10 ketorolac [From Toradol] Allergy Unknown Verified 10/03/23 10:10 tramadol Allergy Unknown Verified 10/03/23 10:10 ketamine AdvReac Hallucinati Verified 10/03/23 15:37 ons NSAIDS (Non-Steroidal AdvReac Emesis Verified 10/03/23 10:10 Anti-Inflamma - Social History Does the pt smoke?: Yes Smoking Status: Current every day smoker Does the pt drink ETOH?: Yes Does the pt have substance abuse?: Yes - Immunizations Immunizations are current?: No Immunizations: TDAP current <10years, Other immun not current - POLST Patient has POLST: No PD ED PE NORMAL - Vitals Vital signs reviewed: Yes - General General: Alert and oriented X 3, Well developed/nourished, Other (states in severe pain right chest and right hip laterally. ) - HEENT HEENT: Atraumatic - Neck Neck: Supple, no meningeal sign, No bony TTP, No adenopathy - Cardiac Cardiac: RRR, No murmur - Respiratory Respiratory: No respiratory distress, Clear bilaterally, Other (some chest tenderness right anterolateral withut crepitance nor deformity. ) - Abdomen Abdomen: Soft, Non tender - Back Back: No spinal TTP - Derm Derm: Normal color, Warm and dry - Extremities Extremities: Other (right hip with some tenderness lateral and also posterior SI area. No rash nor sores. ) - Neuro Neuro: Alert and oriented X 3, No motor deficit, No sensory deficit, Normal speech Results - Vitals Vitals: Oxygen O2 Source Room air - Labs Labs: Laboratory Tests 10/03/23 10/03/23 12:08 12:08 WBC 7.8 RBC 4.44 Hgb 12.0 Hct 36.4 L MCV 82.0 MCH 27.0 MCHC 33.0 RDW 13.5 Plt Count 332 MPV 9.7 Neut # (Auto) 5.3 Lymph # (Auto) 1.8 [place] # (Auto) 0.5 Eos # (Auto) 0.1 Baso # (Auto) 0.1 Absolute Nucleated RBC 0.00 Nucleated RBC % 0.0 Sodium 132 L Potassium 3.7 Chloride 98 L Carbon Dioxide 25 Anion Gap 9.0 BUN 6 Creatinine 0.8 Estimated GFR (MDRD) 73 L Glucose 109 H Calcium 9.7 Magnesium 1.8 Total Bilirubin 0.4 AST 19 ALT 20 Alkaline Phosphatase 93 Total Protein 6.3 L Albumin 4.3 Globulin 2.0 L Albumin/Globulin Ratio 2.2 Lipase 23 Acetaminophen 0.8 - Rads (name of study) chest xray Relevant Findings:: Prelim report reviewed, EMP independent interpretation of test (normal lungs. No noted rib injuries. ) right femur Relevant Findings:: Prelim report reviewed, EMP independent interpretation of test (no fractures. hip replacements in place. ) pelvic CT Relevant Findings:: Prelim report reviewed (no fractures nor acute osseous problem. ) PD Medical Decision Making - ED course Complexity details: reviewed results, considered differential (significant pain from fall to right side, with injury to the right hip/pelvis and right chest. ), d/w patient Reviewed Lab Results: Her xray of femur and hip appear good. Prosthesis without fracture around it. Pain with standing, so got pelvic CT as well. No fractures. Chest xray without abnormalities. Pt having improved pain with meds here in the ER. able to stand after meds here. Contusions of chest and hip/pelvis when fall. No noted fractures. Drug Therapy Requiring Monitoring for Toxicity: she was not having significant improvement of her pain with IV doses of Dilaudid x 2. Had gotten fentanyl by EMS enroute without adequate improvement. I gave dose of Ketamine at less than 1 mg/kg IVPB over 40 minutes. Despite slow administration of low dose, she still felt notably/uncomfortably confused and lightheaded. Did not like the effects at all and does not want it administered again. However she does state that her pain is mostly gone. So good for now. Departure - Departure Disposition: 01 Home, Self Care Clinical Impression: Chest wall contusion Fall from slip, trip, or stumble Qualifiers: Encounter type: initial encounter Qualified Code(s): W01.0XXA - Fall on same level from slipping, tripping and stumbling without subsequent striking against object, initial encounter Contusion, hip Qualifiers: Encounter type: initial encounter Laterality: right Qualified Code(s): S70.01XA - Contusion of right hip, initial encounter Condition: Stable Record reviewed to determine appropriate education?: Yes Instructions: ED Contusion Chest Wall, ED Contusion Hip Prescriptions: HYDROcod/ACETAM 5/325 [[place] 5/325] 1 ea PO Q6H PRN #18 tablet PRN Reason: Pain methocarbamoL [Robaxin] 500 mg PO Q6H PRN #30 tablet PRN Reason: Spasms Comments: The x-rays of your chest and ribs as well as your femur and the CT of your pelvis does not show any fractures or dislocations. The hip replacement appears in place and not loosened and no fractures around it. This is not to say you are not having pain in those areas from bruising/contusion. I would anticipate improvement over at least several days to a week or so from these still. Use Tylenol 500 650 mg 4 times a day regularly for the next several days to week. Add Robaxin muscle relaxant if needed for spasms and stiffness. To that hydrocodone every 4-6 hours if needed for worse pain to be used intermittently and sparingly. I would anticipate needing this just over the next several days or so. I sent your prescription to your preferred pharmacy. I am prescribing a short course of narcotic pain medication for you. These are potentially dangerous and addictive medications that should be used carefully. These medications may constipate you. Take an eqit-gqx-rcuqsfm stool softener such as docusate twice daily with plenty of water while taking these medications. If you go 24 hours without a bowel movement, take kuof-omh-edcsfvu MiraLAX, per package instructions. Do not drink or drive while taking these medications. If you received narcotic or sedating medications while in the emergency department do not drive for 24 hours. Store this medication in a safe, secure place and out of reach of children. It is a violation of federal law to give or sell this medication to another person or to use in a manner other than prescribed. The ED will not refill narcotic prescriptions, including prescriptions lost or stolen. You can dispose of unwanted medications at the [facility]'s office or at several pharmacies such as [email or web address]. Forms: PCP List Discharge Date/Time: 10/03/23 17:18
[2023-10-03 12:15] LABS: BASOPHILS # (AUTO) 0.1 10^3/uL (0.0-0.1); BASOPHILS % (AUTO) 0.8 %; EOSINOPHILS # (AUTO) 0.1 10^3/uL (0.0-0.7); EOSINOPHILS % (AUTO) 0.8 %; HCT - HEMATOCRIT 36.4 % (37.0-47.0); LYMPHOCYTES # (AUTO) 1.8 10^3/uL (1.5-3.5); LYMPHOCYTES % (AUTO) 23.6 %; MEAN PLATELET VOLUME 9.7 fL (7.9-10.8); MONOCYTES # (AUTO) 0.5 10^3/uL (0.0-1.0); MONOCYTES % (AUTO) 6.4 %; NEUTROPHILS # (AUTO) 5.3 10^3/uL (1.5-6.6); NEUTROPHILS % (AUTO) 68.3 %; PLT - PLATELET COUNT 332 10^3/uL (130-450); RED BLOOD COUNT 4.44 10^6/uL (4.20-5.40); RED CELL DISTRIBUTION WIDTH 13.5 % (12.0-15.0); WHITE BLOOD COUNT 7.8 x10^3/uL (4.8-10.8)
[2023-10-03] MEDS: HYDROmorphone 1 MG/ML CARPUJECT IVP STA ×2 (12:16→13:21)
[2023-10-03] MEDS: diazePAM INJ 5 MG/ML SYRINGE IVP STA (12:16)
[2023-10-03 12:23] LABS: MAGNESIUM 1.8 mg/dL (1.7-2.3)
[2023-10-03 12:29] LABS: ACETAMINOPHEN 0.8 ug/mL; ALBUMIN 4.3 g/dL (3.2-5.5); ALBUMIN/GLOBULIN RATIO 2.2 (1.0-2.2); BILIRUBIN,TOTAL 0.4 mg/dL (0.2-1.0); CALCIUM 9.7 mg/dL (8.5-10.3); CREATININE 0.8 mg/dL (0.6-1.3); POTASSIUM 3.7 mmol/L (3.5-4.5); TOTAL PROTEIN 6.3 g/dL (6.4-8.9)
--- NOTE | 2023-10-03 13:26 | XRAY Report ---
PROCEDURE: Chest 1V INDICATIONS: fall, with right lower ribs pain TECHNIQUE: One view of the chest was acquired. COMPARISON: None. FINDINGS: Surgical changes and devices: A cardiac pacemaker is seen with pulse generator in the left chest. Lungs and pleura: No pleural effusions or pneumothorax. Lungs are clear. Mediastinum: Mediastinal contours appear normal. Heart size is normal. Bones and chest wall: No suspicious bony lesions. Overlying soft tissues appear unremarkable. IMPRESSION: No acute cardiopulmonary process. No pneumothorax or displaced rib fracture identified. Reviewed by: London Galo MD on 10/03/2023 1:25 PM PDT Approved by: London Galo MD on 10/03/2023 1:25 PM PDT Station ID: [id number]
--- NOTE | 2023-10-03 13:32 | XRAY Report ---
PROCEDURE: Femur 2+V RT INDICATIONS: fall, prior hip replacement, hip pain TECHNIQUE: 2 views of the femur were acquired. COMPARISON: Left hip radiographs 01/19/2021, CT pelvis 07/23/2023. FINDINGS: Bones: Postsurgical changes from right total hip arthroplasty. No acute osseous fracture identified. Soft tissues: No suspicious soft tissue calcifications. IMPRESSION: 1.Stable right hip arthroplasty. 2.No acute osseous abnormality. If there is clinical concern or persistent symptoms, additional imagi ng such as repeat radiographs or advanced imaging (e.g. CT, MRI) may be helpful for further evaluatio n. Reviewed by: London Galo MD on 10/03/2023 1:31 PM PDT Approved by: London Galo MD on 10/03/2023 1:31 PM PDT Station ID: [id number]
[2023-10-03 14:24] VITALS: O2SAT 97
[2023-10-03] MEDS ORDERED: KETAMINE 200 MG/20 ML VIAL IV STA (14:24)
[2023-10-03] MEDS: diphenhydrAMINE INJ 50 MG/ML VIAL IVP STA (14:42)
[2023-10-03] MEDS: SODIUM CHLORIDE 0.9% IV STA (14:56)
[2023-10-03] MEDS: KETAMINE IV STA (14:56)
[2023-10-03] MEDS: KETAMINE 500 MG/10 ML VIAL IV STA (15:23)
--- NOTE | 2023-10-03 16:16 | CT Report ---
PROCEDURE: Pelvis WO INDICATIONS: fall, pelvic pain TECHNIQUE: Noncontrast 3 mm axial sections acquired through the bony pelvis, with coronal and sagittal reformatt ing. For radiation dose reduction, the following was used: automated exposure control, adjustment of mA and/or kV according to patient size. COMPARISON: CT pelvis 07/23/2023, right femur radiographs 10/03/2023. FINDINGS: Image quality: Excellent. Bones: Postsurgical changes are seen from bilateral hip arthroplasties with extensive metal streak a rtifact that obscures structures at the same level. Hardware appears to be intact without signs of lo osening. Degenerative changes are seen in the included spine. No acute osseous fracture. Pelvic bones . Intact. Soft tissues: No significant hip effusion or periarticular mass. No soft tissue hematoma is seen. Th e ligaments and tendons are not well evaluated with CT. Multiple diverticula are seen in the colon. N o acute abnormality is seen in the included pelvis. No presacral edema. IMPRESSION: 1.No acute osseous abnormality. 2.Bilateral total hip arthroplasties. Reviewed by: London Galo MD on 10/03/2023 4:15 PM PDT Approved by: London Galo MD on 10/03/2023 4:15 PM PDT Station ID: [id number]
[2023-10-03 16:22] VITALS: BP 134/79
== END 2023-10-03 17:18 | disposition home or self-care (01) ==
LOC: ED 10:03
DX: S20.211A Contusion of right front wall of thorax, initial encounter (principal); S70.01XA Contusion of right hip, initial encounter; W01.0XXA Fall on same level from slipping, tripping and stumbling without subsequent striking against object, initial encounter; I25.10 Atherosclerotic heart disease of native coronary artery without angina pectoris; I25.2 Old myocardial infarction; F17.200 Nicotine dependence, unspecified, uncomplicated; Z79.899 Other long term (current) drug therapy
CPT/HCPCS: 36415; 71045; 72192; 73552; 80053; 80143; 83690; 83735; 85025; 96374; 96375; 96376; 99285; J1170; J1200

== ENCOUNTER 2023-11-12 11:24 | Emergency (ER) | payer MEDICAID ==
[2023-11-12] MEDS: CYCLOBENZAPRINE 10 MG TABLET PO STA (13:13)
[2023-11-12] MEDS: HYDROmorphone 1 MG/ML CARPUJECT IM STA ×2 (13:13→14:15)
--- NOTE | 2023-11-12 13:13 | ED Physician Documentation ---
PD HPI BACK PAIN - Stated complaint Stated Complaint: LOW BACK PX - Chief complaint Chief Complaint: Back Pain - History obtained from History obtained from: Patient - History of Present Illness Timing - duration: Weeks Timing - details: Gradual onset Pain level max: 9 Pain level now: 9 Location: Lower, Right Quality: Pain, Spasm, Sharp, Similar to prior episodes Associated symptoms: No: Fever, Weakness, Numbness, Incontinent of urine, Unable to urinate, Hematuria, Incontinent of stool Improves with: Nothing Worsened by: Movement Contributing factors: No: Lifting, Twisting, Trauma, Anticoagulated, Cancer, IVDA - Additional information Additional information: Patient is a 63-year-old female who presents to the emergency department complaining of ongoing low back pain. She has an appointment with a spine surgeon at the end of the month. She states that she has low back pain that radiates down the back of the right leg. Worse with movement, nothing makes it better. She states that she cannot take anti-inflammatory medications because "they make me crazy". She states the pain was bad last night and she did take Advil however without it making her go crazy. No loss of bowel or bladder control. No focal weakness or numbness. She states that her doctor told her "her L something and S something are messed up". 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 HEENT: Chronic hearing loss Psych: Depression, Anxiety Musculoskeletal: None Derm: None - Past Surgical History Past Surgical History: Yes Ortho: Hip replacement, Other /EARLY INTERVENTIONIST: Hysterectomy Cardiovascular: Coronary stent, Cardiac catheterization - Present Medications Home Medications: Ambulatory Orders Medication Instructions Recorded Confirmed Losartan/Hydrochlorothiazide 1 tab PO HS 07/04/21 10/03/23 [Losartan-Hctz 100-12.5 mg Tab] lamoTRIgine [LaMICtal] 100 mg PO HS 07/04/21 10/03/23 Amitriptyline [Elavil] 25 mg PO QPM 07/23/23 10/03/23 Prazosin HCl [Minipress] 5 mg PO DAILY 07/23/23 10/03/23 amLODIPine [Norvasc] 5 mg PO DAILY 07/23/23 10/03/23 carvediloL [Coreg] 12.5 mg PO DAILY 07/23/23 10/03/23 hydrOXYzine HCL [Hydroxyzine HCl] 25 mg PO Q8HR PRN 07/23/23 10/03/23 HYDROcod/ACETAM 5/325 [[place] 5/325] 1 ea PO Q6H PRN #18 tablet 10/03/23 methocarbamoL [Robaxin] 500 mg PO Q6H PRN #30 tablet 10/03/23 Cyclobenzaprine [Flexeril] 10 mg PO TID PRN #20 tablet 11/12/23 methylPREDNISolone [Medrol] 4 mg PO DAILY #1 each 11/12/23 oxyCODONE [Roxicodone] 5 - 10 mg PO Q6H PRN #14 tablet 11/12/23 MDD 6 - Allergies Allergies/Adverse Reactions: Allergies Allergy/AdvReac Type Severity Reaction Status Date / Time cephalexin Allergy Unknown Verified 11/12/23 11:40 ketorolac [From Toradol] Allergy Unknown Verified 11/12/23 11:40 tramadol Allergy Unknown Verified 11/12/23 11:40 ketamine AdvReac Hallucinati Verified 11/12/23 11:40 ons NSAIDS (Non-Steroidal AdvReac Emesis Verified 11/12/23 11:40 Anti-Inflamma - Social History Does the pt smoke?: Yes Smoking Status: Current every day smoker Does the pt drink ETOH?: Yes Does the pt have substance abuse?: Yes Substance Use and Type: Marijuana - Immunizations Immunizations are current?: No Immunizations: TDAP current <10years, Other immun not current - POLST Patient has POLST: No PD ED PE NORMAL - Vitals Vital signs reviewed: Yes - General General: Alert and oriented X 3, No acute distress, Well developed/nourished - HEENT HEENT: Moist mucous membranes - Neck Neck: Supple, no meningeal sign, No bony TTP - Cardiac Cardiac: RRR - Respiratory Respiratory: No respiratory distress, Clear bilaterally - Abdomen Abdomen: Soft, Non tender, Non distended - Back Back: Other (No midline tenderness to palpation or percussion. She is tender over the right SI joint. Otherwise normal examination of the thoracolumbar spine.) - Derm Derm: Warm and dry - Extremities Extremities: No deformity, No edema - Neuro Neuro: Alert and oriented X 3, No motor deficit, No sensory deficit, Other (Normal bilateral lower extremity patellar and ankle jerk reflexes. Normal great toe extension bilaterally. no saddle anesthesia) - Psych Psych: Normal mood, Normal affect Results - Vitals Vitals: Vital Signs - 24 hr 11/12/23 11/12/23 11:40 14:30 Temperature 36.9 C 36.8 C Heart Rate 70 69 Respiratory 18 18 Rate Blood Pressure 137/88 H 117/70 O2 Saturation 94 97 Oxygen O2 Source Room air PD Medical Decision Making - ED course Complexity details: reviewed results, re-evaluated patient, considered differential (No cauda equina, no spinal epidural abscess, no fracture, no aortic dissection or evidence of aneursym rupture), d/w patient ED course: 63-year-old female with right-sided sciatica symptoms. She has a CT myelogram scheduled in a week, has an appointment with a spine surgeon directly following that. She was given a dose of Dilaudid, dexamethasone and Flexeril here. Pain improved. Will place on pain medication, muscle relaxants and steroids for home. No evidence of cauda equina, epidural abscess. No fevers. Does not use drugs. No red flags. No indication for emergent imaging. Patient counseled regarding signs and symptoms for which I believe and urgent re-evaluation would be necessary. Patient with good understanding of and agreement to plan and is comfortable going home at this time This document was made in part using voice recognition software. While efforts are made to proofread this document, sound alike and grammatical errors may occur. Departure - Departure Disposition: Home, Self Care Clinical Impression: Sciatica Qualifiers: Laterality: right Qualified Code(s): M54.31 - Sciatica, right side Condition: Good Instructions: ED Sciatica Follow-Up: your,doctor in 1 week [Other] Prescriptions: Cyclobenzaprine [Flexeril] 10 mg PO TID PRN #20 tablet PRN Reason: Spasms methylPREDNISolone [Medrol] 4 mg PO DAILY #1 each oxyCODONE [Roxicodone] 5 - 10 mg PO Q6H PRN #14 tablet MDD 6 PRN Reason: pain Comments: You appear to be suffering from sciatica. Please follow-up with your spine surgeon as scheduled. Your prescriptions were sent to [facility] in [place]. This should start to improve over the next 24 to 48 hours. I am prescribing a short course of narcotic pain medication for you. These are potentially dangerous and addictive medications that should be used carefully. These medications may constipate you. Take an onct-xsz-dkzyjvc stool softener (docusate) twice daily with plenty of water while taking these medications. If you go 24 hours without a bowel movement, take aoeu-bag-dekmxln miralax, per package instructions. Do not drink or drive while taking these medications. If you received narcotic or sedating medications while in the emergency department, do not drive for 24 hours. Store this medication in a safe, secure place and out of reach of children. It is a violation of federal law to give or sell this medication to another person or to use in a manner other than prescribed. The ED will not refill narcotic prescriptions, including prescriptions lost or stolen. To dispose of unwanted medications: 1. [facility] at [address] in [place] has a medication drop box. They accept prescription medications (in pill form) Friday through Friday 9:00 a.m. to 5:00 p.m. 2. The [facility] [employer] accepts prescription medications (in pill form only) for disposal year round. Call for more information. 3. Contact the [facility] for the next [facility] sponsored prescription drug collection event. , [phone], or [phone]; This document was made in part using voice recognition software. While efforts are made to proofread this document, sound alike and grammatical errors may occur. Discharge Date/Time: 11/12/23 14:53
[2023-11-12] MEDS: DEXAMETHASONE 10 MG/ML VIAL PO STA (13:30)
[2023-11-12 14:38] VITALS: BP 117/70; O2SAT 97
== END 2023-11-12 14:53 | disposition home or self-care (01) ==
LOC: ED 11:24
DX: M54.31 Sciatica, right side (principal); I10 Essential (primary) hypertension; I25.10 Atherosclerotic heart disease of native coronary artery without angina pectoris; I25.2 Old myocardial infarction; Z86.73 Personal history of transient ischemic attack (TIA), and cerebral infarction without residual deficits; Z79.899 Other long term (current) drug therapy; F17.210 Nicotine dependence, cigarettes, uncomplicated
CPT/HCPCS: 96372; 99283; A9270; J1170

== ENCOUNTER 2023-12-09 10:02 | Outpatient (CLI) | payer MEDICAID | END 2023-12-09 23:59 | disposition critical access hospital (66) | LOC: EMS 10:02 | DX: R10.84 Generalized abdominal pain (principal); R14.0 Abdominal distension (gaseous); R10.817 Generalized abdominal tenderness; R19.37 Generalized abdominal rigidity; R42 Dizziness and giddiness; R53.1 Weakness; R00.0 Tachycardia, unspecified | CPT/HCPCS: A0425; A0427; A0999 ==

== ENCOUNTER 2023-12-09 10:26 | Emergency (ER) | payer MEDICAID ==
--- NOTE | 2023-12-09 11:19 | ED Physician Documentation ---
PD HPI ABD PAIN - Stated complaint Stated Complaint: ABD PX - Chief complaint Chief Complaint: Abd Pain - History obtained from History obtained from: Patient - History of Present Illness Timing - onset: How many days ago (4) Timing - duration: Days (4) Timing - details: Gradual onset Pain level max: 10 Pain level now: 10 Quality: Aching, Pain Location: Epigastric Associated symptoms: No: Fever, Hematemesis, Diarrhea, Constipation, Melena, Hematochezia, Dysuria, Hematuria - Additional information Additional information: Patient is a 63-year-old female who presents to the emergency department complaining of abdominal pain ongoing for the past 4 days. She states that it started epigastric and is spread over her entire abdomen. Nothing seems to make it better or worse. She states it feels like her abdomen is "going to explode". She has had nausea but no vomiting. No diarrhea or constipation. No fevers or chills. She states that she cannot take NSAIDs. She states she does smoke marijuana daily. Occasional alcohol. 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 PROGRAMS DIRECTOR: Hysterectomy Cardiovascular: Coronary stent, Cardiac catheterization - Present Medications Home Medications: Ambulatory Orders Medication Instructions Recorded Confirmed Losartan/Hydrochlorothiazide 1 tab PO HS 07/04/21 10/03/23 [Losartan-Hctz 100-12.5 mg Tab] lamoTRIgine [LaMICtal] 100 mg PO HS 07/04/21 10/03/23 Amitriptyline [Elavil] 25 mg PO QPM 07/23/23 10/03/23 Prazosin HCl [Minipress] 5 mg PO DAILY 07/23/23 10/03/23 amLODIPine [Norvasc] 5 mg PO DAILY 07/23/23 10/03/23 carvediloL [Coreg] 12.5 mg PO DAILY 07/23/23 10/03/23 hydrOXYzine HCL [Hydroxyzine HCl] 25 mg PO Q8HR PRN 07/23/23 10/03/23 HYDROcod/ACETAM 5/325 [[place] 5/325] 1 ea PO Q6H PRN #18 tablet 10/03/23 methocarbamoL [Robaxin] 500 mg PO Q6H PRN #30 tablet 10/03/23 Cyclobenzaprine [Flexeril] 10 mg PO TID PRN #20 tablet 11/12/23 methylPREDNISolone [Medrol] 4 mg PO DAILY #1 each 11/12/23 oxyCODONE [Roxicodone] 5 - 10 mg PO Q6H PRN #14 tablet 11/12/23 MDD 6 Esomeprazole Magnesium [Nexium] 40 mg PO DAILY #30 cap 12/09/23 Famotidine [Pepcid] 20 mg PO BID #60 tablet 12/09/23 Ondansetron Odt [Zofran] 4 mg TL Q6H PRN #10 tablet 12/09/23 Sucralfate [Carafate] 1 gm PO ACHS #60 tablet 12/09/23 oxyCODONE [Roxicodone] 5 - 10 mg PO Q6H PRN #14 tablet 12/09/23 MDD 6 - Allergies Allergies/Adverse Reactions: Allergies Allergy/AdvReac Type Severity Reaction Status Date / Time cephalexin Allergy Unknown Verified 12/09/23 10:31 ketorolac [From Toradol] Allergy Unknown Verified 12/09/23 10:31 tramadol Allergy Unknown Verified 12/09/23 10:31 ketamine AdvReac Hallucinati Verified 12/09/23 10:31 ons NSAIDS (Non-Steroidal AdvReac Emesis Verified 12/09/23 10:31 Anti-Inflamma - Social History Does the pt smoke?: Yes Smoking Status: Current every day smoker Does the pt drink ETOH?: Yes Does the pt have substance abuse?: Yes - Immunizations Immunizations are current?: No Immunizations: TDAP current <10years, Other immun not current - POLST Patient has POLST: No PD ED PE NORMAL - Vitals Vital signs reviewed: Yes - General General: Alert and oriented X 3, No acute distress - HEENT HEENT: Moist mucous membranes - Neck Neck: Supple, no meningeal sign - Cardiac Cardiac: RRR, Strong equal pulses - Respiratory Respiratory: No respiratory distress, Clear bilaterally - Abdomen Abdomen: Soft, Non distended, Other (TTP epigastric with no peritoneal signs. no rebound or guarding) - Back Back: No CVA TTP, No spinal TTP - Derm Derm: Warm and dry - Neuro Neuro: Alert and oriented X 3 - Psych Psych: Normal mood, Normal affect Results - Vitals Vitals: Vital Signs - 24 hr 12/09/23 12/09/23 12/09/23 10:31 13:21 16:11 Temperature 36.7 C 36.4 C L Heart Rate 121 H 100 81 Respiratory 24 18 18 Rate Blood Pressure 160/112 H 128/85 H 147/82 H O2 Saturation 100 94 95 Oxygen O2 Source Room air - Labs Labs: Laboratory Tests 12/09/23 12/09/23 12:42 12:42 WBC 8.3 RBC 4.31 Hgb 11.8 L Hct 36.6 L MCV 84.9 MCH 27.4 MCHC 32.2 RDW 14.8 Plt Count 298 MPV 8.9 Neut # (Auto) 5.7 Lymph # (Auto) 1.8 [place] # (Auto) 0.6 Eos # (Auto) 0.1 Baso # (Auto) 0.1 Absolute Nucleated RBC 0.00 Nucleated RBC % 0.0 Sodium 136 Potassium 3.7 Chloride 103 Carbon Dioxide 27 Anion Gap 6.0 BUN 8 Creatinine 0.9 Estimated GFR (MDRD) 63 L Glucose 114 H Calcium 9.5 Total Bilirubin 0.5 AST 12 ALT 14 Alkaline Phosphatase 83 Total Protein 6.8 Albumin 4.3 Globulin 2.5 Albumin/Globulin Ratio 1.7 Lipase 19 - Rads (name of study) CT abd pelvis Relevant Findings:: Final report received, See rad report PD Medical Decision Making - ED course Complexity details: reviewed results, re-evaluated patient, considered differential, d/w patient ED course: Patient with epigastric abdominal pain of unclear etiology. No acute findings on CT scan. No acute findings on laboratory testing. Pain well controlled with IV Dilaudid. Abdomen is soft, nontender, nondistended on serial exam. Possible gastritis? Does feel better after a PPI and G.I. cocktail. We will place on a PPI, H2 dannie for home. Recommend endoscopy with her doctor. Patient will return if she worsens. Patient counseled regarding signs and symptoms for which I believe an urgent re-evaluation would be necessary. Patient with good understanding of and agreement to plan and is comfortable going home at this time. This document was made in part using voice recognition software. While efforts are made to proofread this document, sound alike and grammatical errors may occur. Departure - Departure Disposition: 01 Home, Self Care Clinical Impression: Abdominal pain Qualifiers: Abdominal location: epigastric Qualified Code(s): R10.13 - Epigastric pain Gastritis Qualifiers: Gastritis type: unspecified gastritis Chronicity: acute Gastritis bleeding: without bleeding Qualified Code(s): K29.00 - Acute gastritis without bleeding Condition: Stable Instructions: ED Abdominal Pain Female Non-Specific Abdominal Pain, ED Gastritis Follow-Up: Lupe Fitzpatrick FNP [Primary Care Provider] - Within 1 week Prescriptions: Sucralfate [Carafate] 1 gm PO ACHS #60 tablet Esomeprazole Magnesium [Nexium] 40 mg PO DAILY #30 cap Famotidine [Pepcid] 20 mg PO BID #60 tablet oxyCODONE [Roxicodone] 5 - 10 mg PO Q6H PRN #14 tablet MDD 6 PRN Reason: pain Ondansetron Odt [Zofran] 4 mg TL Q6H PRN #10 tablet PRN Reason: Nausea / Vomiting Comments: Your prescriptions were sent to [facility] in [place]. Please use the medication as prescribed. Please follow-up with your doctor for further care. Your CT scan does not show any acute abnormalities today. Your laboratory testing is unremarkable as well. I am prescribing a short course of narcotic pain medication for you. These are potentially dangerous and addictive medications that should be used carefully. These medications may constipate you. Take an xoum-ayb-dpjulto stool softener (docusate) twice daily with plenty of water while taking these medications. If you go 24 hours without a bowel movement, take angb-nay-xcnngih miralax, per package instructions. Do not drink or drive while taking these medications. If you received narcotic or sedating medications while in the emergency department, do not drive for 24 hours. Store this medication in a safe, secure place and out of reach of children. It is a violation of federal law to give or sell this medication to another person or to use in a manner other than prescribed. The ED will not refill narcotic prescriptions, including prescriptions lost or stolen. To dispose of unwanted medications: 1. [facility] at [address] in [place] has a medication drop box. They accept prescription medications (in pill form) Friday through Friday 9:00 a.m. to 5:00 p.m. 2. The [facility] Police Department accepts prescription medications (in pill form only) for disposal year round. Call for more information. 3. Contact the [facility] for the next [facility] sponsored prescription drug collection event. , [phone], or [phone]; Forms: PCP List Discharge Date/Time: 12/09/23 16:11
[2023-12-09] MEDS: HYDROmorphone 1 MG/ML CARPUJECT IM STA (12:00)
[2023-12-09] MEDS: DROPERIDOL 5 MG/2 ML VIAL IM STA (12:00)
[2023-12-09 12:46] LABS: BASOPHILS # (AUTO) 0.1 10^3/uL (0.0-0.1); BASOPHILS % (AUTO) 0.7 %; EOSINOPHILS # (AUTO) 0.1 10^3/uL (0.0-0.7); EOSINOPHILS % (AUTO) 0.8 %; HCT - HEMATOCRIT 36.6 % (37.0-47.0); HGB - HEMOGLOBIN 11.8 g/dL (12.0-16.0); LYMPHOCYTES # (AUTO) 1.8 10^3/uL (1.5-3.5); LYMPHOCYTES % (AUTO) 21.8 %; MEAN CORPUSCULAR HEMOGLOBIN 27.4 pg (27.0-31.0); MEAN CORPUSCULAR HGB CONC 32.2 g/dL (32.0-36.0); MEAN CORPUSCULAR VOLUME 84.9 fL (81.0-99.0); MEAN PLATELET VOLUME 8.9 fL (7.9-10.8); MONOCYTES # (AUTO) 0.6 10^3/uL (0.0-1.0); MONOCYTES % (AUTO) 6.9 %; NEUTROPHILS # (AUTO) 5.7 10^3/uL (1.5-6.6); NEUTROPHILS % (AUTO) 69.6 %; PLT - PLATELET COUNT 298 10^3/uL (130-450); RED BLOOD COUNT 4.31 10^6/uL (4.20-5.40); RED CELL DISTRIBUTION WIDTH 14.8 % (12.0-15.0); WHITE BLOOD COUNT 8.3 x10^3/uL (4.8-10.8)
[2023-12-09] MEDS: SODIUM CHLORIDE 0.9% 1,000 ML IV STA (12:54)
[2023-12-09 13:18] LABS: ALBUMIN 4.3 g/dL (3.2-5.5); ALBUMIN/GLOBULIN RATIO 1.7 (1.0-2.2); BILIRUBIN,TOTAL 0.5 mg/dL (0.2-1.0); CALCIUM 9.5 mg/dL (8.5-10.3); CREATININE 0.9 mg/dL (0.6-1.3); POTASSIUM 3.7 mmol/L (3.5-4.5); TOTAL PROTEIN 6.8 g/dL (6.4-8.9)
[2023-12-09] MEDS ORDERED: iohexoL-300 100 ML VIAL ONE (13:22)
[2023-12-09] MEDS: HYDROmorphone 1 MG/ML CARPUJECT IVP STA (13:51)
--- NOTE | 2023-12-09 14:20 | CT Report ---
PROCEDURE: Abdomen/Pelvis W INDICATIONS: diffuse abd pain CONTRAST: Omni 300 100ml TECHNIQUE: After the administration of intravenous contrast, a CT scan of the abdomen and pelvis was performed. Images were recorded and evaluated at appropriate window settings. Reformats: coronal and sagittal. F or radiation dose reduction, the following was used: automated exposure control, adjustment of mA and /or kV according to patient size. COMPARISON: None. FINDINGS: Image quality: Diagnostic. Lower chest: Juxtapleural nodule in the right lung base; location and appearance favors a benign intr apulmonary lymph node. Liver: No solid mass. Focal fat adjacent to the falciform ligament. Gallbladder: No radiopaque stones or wall thickening. Biliary tree: No intrahepatic or extrahepatic dilation, accounting for age. Spleen: No splenomegaly. Pancreas: No pancreatic ductal dilation. Adrenals: No adrenal nodule. Kidneys and ureters: No hydronephrosis. No renal cystic lesion which requires follow up. No solid mas s. Stomach, bowel and peritoneum: No gastric or small bowel dilation. No abnormal wall thickening. No pa thologic free fluid. Normal appendix. Colonic diverticulosis without evidence of diverticulitis. Lymph nodes: No central or retroperitoneal adenopathy. Vessels: No infrarenal aortic aneurysm. Patent portal vein. PELVIS Suboptimally visualized due to extensive metallic artifact. Bones: No aggressive osseous abnormality. Other: No significant ventral or inguinal hernia. IMPRESSION: No acute abnormality to explain the patient's diffuse abdominal pain. No gallbladder pathology. No ne phrolithiasis. Normal appendix. Colonic diverticulosis without evidence of diverticulitis. Reviewed by: Glenn Pitts MD on 12/09/2023 1:18 PM AKRODRICK Approved by: Glenn Pitts MD on 12/09/2023 1:18 PM AKDT Station ID: [id number]
[2023-12-09] MEDS: iohexoL-300 100 ML VIAL IVP ONE (14:45)
[2023-12-09] MEDS: MAG HYDROX/AL HYDROX/SIMETH 30 ML UDC PO STA (15:15)
[2023-12-09] MEDS: PANTOPRAZOLE 40 MG VIAL IVP STA (15:16)
[2023-12-09] MEDS: SUCRALFATE 1 GM/10 ML UDC PO STA (15:16)
[2023-12-09 16:42] VITALS: BP 147/82; O2SAT 95
== END 2023-12-09 16:11 | disposition home or self-care (01) ==
LOC: ED 10:26
DX: K29.00 Acute gastritis without bleeding (principal); I10 Essential (primary) hypertension; I25.10 Atherosclerotic heart disease of native coronary artery without angina pectoris; I25.2 Old myocardial infarction; Z86.73 Personal history of transient ischemic attack (TIA), and cerebral infarction without residual deficits; Z79.899 Other long term (current) drug therapy; F17.200 Nicotine dependence, unspecified, uncomplicated
CPT/HCPCS: 36415; 74177; 80053; 83690; 85025; 96372; 96374; 96375; 99283; 99284; A9270; J1170; Q9967

== ENCOUNTER 2023-12-15 10:36 | Outpatient (CLI) | payer MEDICAID | END 2023-12-15 23:59 | disposition critical access hospital (66) | LOC: EMS 10:36 | DX: R10.13 Epigastric pain (principal); R11.0 Nausea; K59.00 Constipation, unspecified | CPT/HCPCS: A0425; A0429; A0999 ==

== ENCOUNTER 2023-12-15 10:57 | Emergency (ER) | payer MEDICAID ==
--- NOTE | 2023-12-15 11:40 | ED Physician Documentation ---
PD HPI ABD PAIN - Stated complaint Stated Complaint: ABD PX/CONSTIPATION - Chief complaint Chief Complaint: Abd Pain - Treatment prior to arrival Treatment prior to arrival: 63-year-old female with history of coronary artery disease, hypertension, hypokalemia, epilepsy, partial hysterectomy presents emergency department for nausea vomiting and constipation. Patient says that she has not had a bowel movement now for about 3 weeks and is now experiencing tremors abdominal pain nausea and vomiting. Patient says that she has not been able to eat much she is a very poor appetite has not missed any of her medications recently has not had any medication changes recently no known fevers or chills. PD PAST MEDICAL HISTORY - Past Medical History Cardiovascular: Hypertension, Coronary artery disease, Angina, [place] Respiratory: None Neuro: CVA, Seizure disorder Endocrine/Autoimmune: None GI: None LAND USE PLANNER: Other : None HEENT: Chronic hearing loss Psych: Depression, Anxiety Musculoskeletal: None Derm: None - Past Surgical History Past Surgical History: Yes Ortho: Hip replacement, Other /LAND USE PLANNER: Hysterectomy Cardiovascular: Coronary stent, Cardiac catheterization - Present Medications Home Medications: Ambulatory Orders Medication Instructions Recorded Confirmed Losartan/Hydrochlorothiazide 1 tab PO HS 07/04/21 12/15/23 [Losartan-Hctz 100-12.5 mg Tab] lamoTRIgine [LaMICtal] 100 mg PO HS 07/04/21 12/15/23 Amitriptyline [Elavil] 25 mg PO QPM 07/23/23 12/15/23 Prazosin HCl [Minipress] 5 mg PO DAILY 07/23/23 12/15/23 amLODIPine [Norvasc] 5 mg PO DAILY 07/23/23 12/15/23 carvediloL [Coreg] 12.5 mg PO DAILY 07/23/23 12/15/23 hydrOXYzine HCL [Hydroxyzine HCl] 25 mg PO Q8HR PRN 07/23/23 12/15/23 HYDROcod/ACETAM 5/325 [[place] 5/325] 1 ea PO Q6H PRN #18 tablet 10/03/23 12/15/23 methocarbamoL [Robaxin] 500 mg PO Q6H PRN #30 tablet 10/03/23 12/15/23 Cyclobenzaprine [Flexeril] 10 mg PO TID PRN #20 tablet 11/12/23 12/15/23 methylPREDNISolone [Medrol] 4 mg PO DAILY #1 each 11/12/23 12/15/23 Esomeprazole Magnesium [Nexium] 40 mg PO DAILY #30 cap 12/09/23 12/15/23 Famotidine [Pepcid] 20 mg PO BID #60 tablet 12/09/23 12/15/23 Ondansetron Odt [Zofran] 4 mg TL Q6H PRN #10 tablet 12/09/23 12/15/23 Sucralfate [Carafate] 1 gm PO ACHS #60 tablet 12/09/23 12/15/23 oxyCODONE [Roxicodone] 5 - 10 mg PO Q6H PRN #14 tablet 12/09/23 MDD 6 Saline Enema [Fleets Saline Enema] 133 ml RC ONCE #1 ea 12/15/23 polyethylene glycoL 3350 [Miralax] 17 gm PO DAILY #14 packet 12/15/23 - Allergies Allergies/Adverse Reactions: Allergies Allergy/AdvReac Type Severity Reaction Status Date / Time cephalexin Allergy Unknown Verified 12/15/23 11:02 ketorolac [From Toradol] Allergy Unknown Verified 12/15/23 11:02 tramadol Allergy Unknown Verified 12/15/23 11:02 ketamine AdvReac Hallucinati Verified 12/15/23 11:02 ons NSAIDS (Non-Steroidal AdvReac Emesis Verified 12/15/23 11:02 Anti-Inflamma - Social History Does the pt smoke?: Yes Smoking Status: Current every day smoker Does the pt drink ETOH?: Yes Does the pt have substance abuse?: Yes - Immunizations Immunizations are current?: No Immunizations: TDAP current <10years, Other immun not current - POLST Patient has POLST: No PD ED PE NORMAL - Vitals Vital signs reviewed: Yes - General General: Alert and oriented X 3, No acute distress, Well developed/nourished - HEENT HEENT: PERRL - Cardiac Cardiac: RRR, No murmur, No gallop, No rub, Strong equal pulses - Respiratory Respiratory: No respiratory distress - Abdomen Abdomen: Other (distension, decreased bowel sounds, generalized abdominal tenderness) - Back Back: No CVA TTP - Derm Derm: Normal color, Warm and dry, No rash - Neuro Neuro: Alert and oriented X 3, ironmolder 2-12 intact, No motor deficit, No sensory deficit, Normal speech, Other (rigors) Results - Vitals Vitals: Vital Signs - 24 hr 12/15/23 12/15/23 12/15/23 11:02 11:05 13:05 Temperature 36.5 C Heart Rate 79 91 79 Respiratory 20 18 18 Rate Blood Pressure 177/110 H 167/103 H 169/102 H O2 Saturation 100 98 96 12/15/23 15:00 Temperature Heart Rate 78 Respiratory 16 Rate Blood Pressure 150/45 H O2 Saturation 98 Oxygen O2 Source Room air - Labs Labs: Laboratory Tests 12/15/23 12/15/23 12/15/23 12:02 12:02 14:20 WBC 9.6 RBC 4.68 Hgb 13.3 Hct 38.6 MCV 82.5 MCH 28.4 MCHC 34.5 RDW 13.9 Plt Count 410 MPV 9.1 Neut # (Auto) 6.4 Lymph # (Auto) 2.3 [place] # (Auto) 0.7 Eos # (Auto) 0.0 Baso # (Auto) 0.1 Absolute Nucleated RBC 0.00 Nucleated RBC % 0.0 Sodium 135 Potassium 3.8 Chloride 98 L Carbon Dioxide 27 Anion Gap 10.0 BUN 7 Creatinine 0.9 Estimated GFR (MDRD) 63 L Glucose 99 Calcium 10.4 H Magnesium 1.6 L Total Bilirubin 0.5 AST 14 ALT 13 Alkaline Phosphatase 94 Total Protein 7.5 Albumin 4.7 Globulin 2.8 Albumin/Globulin Ratio 1.7 Lipase 18 Urine Color Urine Clarity Urine pH Ur Specific [place] Urine Protein Urine Glucose (UA) Urine Ketones Urine Occult Blood Urine Nitrite Urine Bilirubin Urine Urobilinogen Ur Leukocyte Esterase Ur Microscopic Review Urine Culture Comments Urine Opiates Screen NEGATIVE Ur Buprenorphine Scrn NEGATIVE Ur Oxycodone Screen NEGATIVE Urine Methadone Screen NEGATIVE Ur Barbiturates Screen NEGATIVE Ur Tricyclics Screen POSITIVE H Ur Phencyclidine Scrn NEGATIVE Ur Amphetamine Screen NEGATIVE U Methamphetamines Scrn NEGATIVE U Benzodiazepines Scrn POSITIVE H Urine Cocaine Screen NEGATIVE U Cannabinoids Screen POSITIVE H Ur Drug Screen Comment CUTOFF CONC BELOW: 12/15/23 14:20 WBC RBC Hgb Hct MCV MCH MCHC RDW Plt Count MPV Neut # (Auto) Lymph # (Auto) [place] # (Auto) Eos # (Auto) Baso # (Auto) Absolute Nucleated RBC Nucleated RBC % Sodium Potassium Chloride Carbon Dioxide Anion Gap BUN Creatinine Estimated GFR (MDRD) Glucose Calcium Magnesium Total Bilirubin AST ALT Alkaline Phosphatase Total Protein Albumin Globulin Albumin/Globulin Ratio Lipase Urine Color LIGHT YELLOW Urine Clarity CLEAR Urine pH 7.5 Ur Specific [place] 1.010 Urine Protein NEGATIVE Urine Glucose (UA) NEGATIVE Urine Ketones TRACE Urine Occult Blood NEGATIVE Urine Nitrite NEGATIVE Urine Bilirubin NEGATIVE Urine Urobilinogen 0.2 (NORMAL) Ur Leukocyte Esterase NEGATIVE Ur Microscopic Review NOT INDICATED Urine Culture Comments NOT INDICATED Urine Opiates Screen Ur Buprenorphine Scrn Ur Oxycodone Screen Urine Methadone Screen Ur Barbiturates Screen Ur Tricyclics Screen Ur Phencyclidine Scrn Ur Amphetamine Screen U Methamphetamines Scrn U Benzodiazepines Scrn Urine Cocaine Screen U Cannabinoids Screen Ur Drug Screen Comment - Rads (name of study) CT abd pelvis Relevant Findings:: Final report received, EMP independent interpretation of test, Other (right adnexal cystic lesion. no acute abd/pelvic findings) PD Medical Decision Making - ED course ED course: 63-year-old female presents emergency department for abdominal pain and tremors. Abdominal exam without peritoneal signs. No evidence of acute abdomen at this time. Well appearing. Given work up low suspicion for acute hepatobiliary disease (including acute cholecystitis), acute pancreatitis (neg lipase), PUD and gastric perforation, acute infectious processes (pneumonia, hepatitis, pyelonephritis), acute appendicitis, vascular catastrophe, bowel obstruction or viscus perforation, diverticulitis. Presentation not consistent with other acute, emergent causes of abdominal pain at this time. Patient received Toradol in the ER she says that her side effect is anger so we went ahead and decided to try it to see if this helps with her abdominal pain patient was quite upset that she received Toradol she says also causes tachycardia her heart rate currently is 85. She says that she is feeling an urge to her about her IV after receiving Toradol we will go ahead and give her some droperidol to help with her abdominal pain and nausea and see if this helps alleviate some of the symptoms that she is experiencing. Patient patient had no side effects of Toradol she was concerned about possible tachycardia and hallucinations and the symptoms did not happen. She was still quite upset I tried to inform her that she does not have an allergy to Toradol but this did not alleviate any of her agitation. CT was complete for further evaluation and did not reveal any acute abdominal findings she does not have any peritonitis she also does not appear to have a small bowel obstruction CT she was offered an enema here in the emergency department but said that she did not want to pursue this and was prescribed a Fleet enema as well as MiraLAX to help with constipation at home. Return precautions given patient is safe for discharge at this time. Departure - Departure Disposition: 01 Home, Self Care Clinical Impression: Constipation Instructions: Constipation Prescriptions: Saline Enema [Fleets Saline Enema] 133 ml RC ONCE #1 ea polyethylene glycoL 3350 [Miralax] 17 gm PO DAILY #14 packet Comments: Thank you for trusting us with your care. We have offered to treat your constipation in the emergency department and enema here but you opted to do this at home. I have sent a prescription of an enema as well as MiraLAX to [facility] pharmacy I would start taking this as soon as you discharged from here. Please help with your primary care provider work on increasing your fluid intake as well as activity to help with constipation as well as MiraLAX daily and consider adding prune juice to your daily regimen. Your CT scan did not show any emergent findings we are recommending a nonemergent pelvic ultrasound to r eevaluate your right ovary as there appears to be a possible cystic lesion. IMPRESSION: 1. No acute abdominal process. 2. Small hiatal hernia. 3. Diverticulosis without evidence acute diverticulitis. 4. Remote hysterectomy. Bilateral total hip arthroplasties. 5. 3.2 cm cystic structure in the right adnexa may potentially represent a cystic lesion of the right ovary. Potential etiologies include benign and indolent malignant etiologies. Recommend nonemergent pelvic ultrasound to evaluate the right adnexa. Forms: PCP List
[2023-12-15] MEDS: SODIUM CHLORIDE 0.9% 1,000 ML IV ONE (11:55)
[2023-12-15] MEDS: ONDANSETRON 4 MG/2 ML VIAL IVP STA (12:06)
[2023-12-15] MEDS: KETOROLAC 30 MG/ML VIAL IVP STA (12:07)
[2023-12-15 12:22] LABS: BASOPHILS # (AUTO) 0.1 10^3/uL (0.0-0.1); BASOPHILS % (AUTO) 0.9 %; EOSINOPHILS % (AUTO) 0.3 %; HCT - HEMATOCRIT 38.6 % (37.0-47.0); HGB - HEMOGLOBIN 13.3 g/dL (12.0-16.0); LYMPHOCYTES # (AUTO) 2.3 10^3/uL (1.5-3.5); LYMPHOCYTES % (AUTO) 24.3 %; MEAN CORPUSCULAR HEMOGLOBIN 28.4 pg (27.0-31.0); MEAN CORPUSCULAR HGB CONC 34.5 g/dL (32.0-36.0); MEAN CORPUSCULAR VOLUME 82.5 fL (81.0-99.0); MEAN PLATELET VOLUME 9.1 fL (7.9-10.8); MONOCYTES # (AUTO) 0.7 10^3/uL (0.0-1.0); MONOCYTES % (AUTO) 7.5 %; NEUTROPHILS # (AUTO) 6.4 10^3/uL (1.5-6.6); NEUTROPHILS % (AUTO) 66.7 %; PLT - PLATELET COUNT 410 10^3/uL (130-450); RED BLOOD COUNT 4.68 10^6/uL (4.20-5.40); RED CELL DISTRIBUTION WIDTH 13.9 % (12.0-15.0); WHITE BLOOD COUNT 9.6 x10^3/uL (4.8-10.8)
[2023-12-15 12:30] LABS: MAGNESIUM 1.6 mg/dL (1.7-2.3)
[2023-12-15 12:36] LABS: ALBUMIN 4.7 g/dL (3.2-5.5); ALBUMIN/GLOBULIN RATIO 1.7 (1.0-2.2); BILIRUBIN,TOTAL 0.5 mg/dL (0.2-1.0); CALCIUM 10.4 mg/dL (8.5-10.3); CREATININE 0.9 mg/dL (0.6-1.3); POTASSIUM 3.8 mmol/L (3.5-4.5); TOTAL PROTEIN 7.5 g/dL (6.4-8.9)
[2023-12-15] MEDS: DROPERIDOL 5 MG/2 ML VIAL IVP STA (12:40)
[2023-12-15] MEDS ORDERED: iohexoL-300 100 ML VIAL ONE (13:15)
--- NOTE | 2023-12-15 13:59 | CT Report ---
PROCEDURE: Abdomen/Pelvis W INDICATIONS: mid-epigastric pain, nausea vomitting CONTRAST: Omni 300 100ml TECHNIQUE: After the administration of intravenous contrast, a CT scan of the abdomen and pelvis was performed. Images were recorded and evaluated at appropriate window settings. Reformats: coronal and sagittal. F or radiation dose reduction, the following was used: automated exposure control, adjustment of mA and /or kV according to patient size. COMPARISON: 12/09/2023. FINDINGS: Image quality: Diagnostic. Lower chest: Pacemaker. Small hiatal hernia. Extreme lung bases are clear.. Liver: No solid mass. Gallbladder: No radiopaque stones or wall thickening. Biliary tree: No intrahepatic or extrahepatic dilation, accounting for age. Spleen: No splenomegaly. Pancreas: No pancreatic ductal dilation. Adrenals: No adrenal nodule. Kidneys and ureters: No hydronephrosis. No renal cystic lesion which requires follow up. No solid mas s. Stomach, bowel and peritoneum: No gastric or small bowel dilation. No abnormal wall thickening. No pa thologic free fluid. Diverticulosis without evidence acute diverticulitis. Normal appendix. Lymph nodes: No central or retroperitoneal adenopathy. Vessels: No infrarenal aortic aneurysm. Patent portal vein. PELVIS Reproductive organs: Uterus is surgically absent. 3.2 cm maximum diameter cystic structure in the rig ht adnexa. Reference axial image 104 of series 2.. Bladder: No abnormal wall thickening, accounting for underdistention. Pelvic lymph nodes: No pelvic adenopathy by size criteria. Bones: No aggressive osseous abnormality. Bilateral total hip arthroplasties result in significant me tallic artifact in the lower pelvis. Remote posterior laminectomy involving L5. Other: No significant ventral or inguinal hernia. IMPRESSION: 1. No acute abdominal process. 2. Small hiatal hernia. 3. Diverticulosis without evidence acute diverticulitis. 4. Remote hysterectomy. Bilateral total hip arthroplasties. 5. 3.2 cm cystic structure in the right adnexa may potentially represent a cystic lesion of the right ovary. Potential etiologies include benign and indolent malignant etiologies. Recommend nonemergent pelvic ultrasound to evaluate the right adnexa. Reviewed by: Slava Reich MD on 12/15/2023 1:58 PM PDT Approved by: Slava Reich MD on 12/15/2023 1:58 PM PDT Station ID: [id number]
[2023-12-15] MEDS: iohexoL-300 100 ML VIAL IVP ONE (14:25)
[2023-12-15 14:32] LABS: BILIRUBIN,URINE NEGATIVE (NEGATIVE); GLUCOSE, URINE (UA) NEGATIVE (NEGATIVE); KETONES,URINE (UA) TRACE mg/dL (NEGATIVE); LEUKOCYTE ESTERASE, URINE NEGATIVE (NEGATIVE); NITRITE,URINE NEGATIVE (NEGATIVE); OCCULT BLOOD,URINE NEGATIVE (NEGATIVE); PH,URINE 7.5 PH (5.0-7.5); PROTEIN,URINE NEGATIVE (NEGATIVE); UROBILINOGEN,URINE 0.2 (NORMAL) E.U./dL (NORMAL)
[2023-12-15 14:38] LABS: CLARITY,URINE CLEAR (CLEAR)
[2023-12-15 14:49] LABS: AMPHETAMINE SCREEN,URINE NEGATIVE (NEGATIVE); BARBITURATE SCREEN,UR NEGATIVE (NEGATIVE); BENZODIAZEPINES SCREEN, URINE POSITIVE (NEGATIVE); BUPRENORPHINE SCREEN, URINE NEGATIVE (NEGATIVE); COCAINE SCREEN URINE NEGATIVE (NEGATIVE); METHADONE SCREEN, URINE NEGATIVE (NEGATIVE); METHAMPHETAMINES SCREEN, URINE NEGATIVE (NEGATIVE); OPIATE SCREEN, URINE NEGATIVE (NEGATIVE); OXYCODONE SCREEN, URINE NEGATIVE (NEGATIVE); THC CANNABINOID SCREEN, URINE POSITIVE (NEGATIVE); TRICYCLIC ANTIDEPRESSANT,URINE POSITIVE (NEGATIVE)
[2023-12-15 15:17] VITALS: BP 150/45; O2SAT 98
== END 2023-12-15 15:19 | disposition home or self-care (01) ==
LOC: EDUNIT# → ED 10:57
DX: K59.00 Constipation, unspecified (principal); I10 Essential (primary) hypertension; I25.10 Atherosclerotic heart disease of native coronary artery without angina pectoris; G40.909 Epilepsy, unspecified, not intractable, without status epilepticus; I25.2 Old myocardial infarction; Z86.73 Personal history of transient ischemic attack (TIA), and cerebral infarction without residual deficits; Z79.899 Other long term (current) drug therapy
CPT/HCPCS: 36415; 74177; 80053; 80306; 81003; 83690; 83735; 85025; 96361; 96374; 96375; 99284; Q9967; 81001; 87086

== ENCOUNTER 2024-01-21 12:29 | Outpatient (CLI) | payer MEDICAID | END 2024-01-21 12:30 | disposition EMS.NT | LOC: EMS 12:29 | DX: R25.1 Tremor, unspecified (principal); R52 Pain, unspecified; I10 Essential (primary) hypertension ==

== ENCOUNTER 2024-02-13 11:44 | Outpatient (CLI) | payer MEDICAID | END 2024-02-13 23:59 | disposition short-term general hospital (02) | LOC: EMS 11:44 | DX: S79.912A Unspecified injury of left hip, initial encounter (principal); W01.0XXA Fall on same level from slipping, tripping and stumbling without subsequent striking against object, initial encounter; Y93.K9 Activity, other involving animal care | CPT/HCPCS: A0425; A0429; A0999 ==